=== PATIENT | female | born 1955 | race Caucasian/White ===

== ENCOUNTER 2018-01-25 11:17 | Observation (INO) | payer OTHER, SELFPAY ==
[2018-01-25] VITALS (10 sets, daily range): BP systolic 133–186; BP diastolic 67–93; PULSE 66–96; RESP 12–19; TEMP 36.2–36.9; O2SAT 95–99; BMI 28.5
--- NOTE | 2018-01-25 11:19 | ED.NEUROSD ---
HPI - Neuro Symptoms/Deficit General Chief Complaint: Neuro Symptoms/Deficit Stated Complaint: Altered mental status Time Seen by Provider: 01/25/18 11:19 Source: patient and family Mode of arrival: EMS Limitations: no limitations History of Present Illness HPI Narrative: 62-year-old female with a history of hypothyroidism presents after an episode at work where she suddenly became very dizzy/lightheaded, had to sit down, and loss consciousness afterwards. Her boyfriend who was present at work found her in the room with head shaking toward the right side, but no tremor of the upper or lower extremity. She was unresponsive during the episode and afterwards was confused and slow to respond. Medics called code stroke in route and she was evaluated for stroke on arrival here. NIH score was 1 initially as she could not remember her age but 15 min later was normal. Related Data Home Medications Medication Instructions Recorded Confirmed loratadine 10 mg PO DAILY PRN 01/25/18 01/25/18 lovastatin 10 mg PO QPM 01/25/18 01/25/18 omeprazole magnesium [Prilosec OTC] 20 mg PO QAM 01/25/18 01/25/18 ranitidine HCl 300 mg PO BID 01/25/18 01/25/18 thyroid (pork) [[place] Thyroid] 30 mg PO DAILY 01/25/18 01/25/18 trazodone 50 mg PO BEDTIME 01/25/18 01/25/18 Allergies Allergy/AdvReac Type Severity Reaction Status Date / Time metronidazole [METRONIDAZOLE] Allergy Severe FULL BODY Verified 01/25/18 11:54 HIVES Review of Systems Review of Systems All systems reviewed & are unremarkable except as noted in HPI and below Constitutional Denies chills, Denies fever(s), Denies headache(s), Denies lethargy and Denies weakness Eyes Denies change in vision, Denies eye discharge, Denies irritation and Denies loss of vision ENT Ears, Nose, Mouth, and Throat: Denies change in voice, Reports dizziness, Denies headache(s), Denies neck pain and Denies sore throat Cardiovascular Denies chest pain, Denies irregular heart rhythm, Denies lightheadedness, Denies palpitations, Denies dyspnea, Denies dyspnea on exertion and Denies orthopnea Respiratory Denies cough, Denies dyspnea, Denies dyspnea on exertion and Denies wheezing Gastrointestinal Gastrointestinal: Denies abdominal pain, Denies change in bowel habits, Denies diarrhea, Denies nausea and Denies vomiting Genitourinary Denies hematuria, Denies flank pain, Denies urinary incontinence and Denies urinary urgency Musculoskeletal Denies neck pain Integumentary/Breasts Denies pruritus, Denies erythema, Denies rash and Denies wounds Neurologic Denies confusion, Reports dizziness, Denies headache(s), Denies focal weakness, Denies loss of vision and Denies weakness Comments: Syncope Psychiatric Denies anxiety, Denies confusion, Denies depression, Denies homicidal ideation and Denies suicidal ideation Endocrine Denies palpitations Hematologic/Lymphatic Denies easy bruising Allergic/Immunologic Denies wheezing PFSH Medical History Cataract (Acute) Cyst (Acute) Depression (Acute) Hyperlipidemia (Acute) Hypothyroidism (Acute) Gastric reflux syndrome (Acute) Surgical History H/O section (Acute) Status post laser cataract surgery of both eyes (Acute) Social History household members: significant other Smoking Status: Never smoker alcohol intake: current Exam Initial Vital Signs Initial Vital Signs: Vital Signs Temperature 98.5 F 01/25/18 11:15 Pulse Rate 75 01/25/18 11:15 Respiratory Rate 18 01/25/18 11:15 Blood Pressure 186/90 H 01/25/18 11:15 Pulse Oximetry 98 01/25/18 11:15 Const General: cooperative and well developed Nutritional Appearance: well nourished Orientation: alert, awake, oriented x3 and not confused [facility] Head: normocephalic and atraumatic Ears: external ears normal and TM's normal bilaterally Nose: external nose normal and No nasal discharge Face and sinus: sinuses nontender, face symmetric, no sinus tenderness and No dry mucous membranes Mouth: oral mucosae normal and moist mucous membranes Teeth and gingiva: dentition normal Throat: tonsils normal and uvula midline Eyes General: appearance normal, both eyes and all related structures Eyelids: eyelids normal Conjunctivae: conjunctivae normal Sclera: sclerae normal Pupils: PERRL EOM: EOM intact bilaterally Neck Neck: normal visual inspection, trachea midline, No lymphadenopathy, No midline deformity and No JVD Lymphatic: No lymphedema Chest Chest: normal inspection of the chest Resp Effort & Inspection: normal respiratory effort, able to speak in complete sentences, no respiratory distress and no use of accessory muscles Auscultation: clear to auscultation bilaterally, no rales, no rhonchi and no wheezes Cardio Rate: regular rate Rhythm: regular rhythm Heart Sounds: no click, no gallops, no murmurs and no rubs Pulses: normal peripheral pulses GI Inspection: non-distended Palpation: soft, no hepatosplenomegaly, No guarding, No pulsatile mass and No tender Auscultation: normal bowel sounds Back/Spine/Pelvis Back: No CVA tenderness Cervical Spine: cervical ROM normal and No pain with cervical ROM Thoracic/Lumbar Spine: thoracic and lumbar spine normal to inspection Skin General: no rashes or lesions noted, No jaundice and No petechiae Neuro General: alert, oriented x3, gait normal and no focal motor deficits Speech: speech normal Extrem General: full ROM, no clubbing, cyanosis or edema, no pedal edema and no calf tenderness Psych Appearance: well kempt Mental Status: mental status grossly normal Attitude: cooperative Thought Content: normal and suicidality Judgment: judgment good Scores NIH Stroke Scale Level of Conciousness: Alert, keenly responsive Ask month/age: Answers one question correctly, intubated follow commands Open/close eyes, close hand: Performs both tasks correctly Best gaze horizontal: Normal Visual zheng: No visual loss Facial palsy: Normal symetrical movement Left arm drift: No drift for full 10 sec Right arm drift: No drift for full 10 sec Left leg drift: No drift for full 10 sec Right leg drift: No drift for full 10 sec Limb ataxia: Absent Sensory on face/arms/legs: Normal, no sensory loss Best language: No aphasia, normal Dysarthria: Normal Extinction or inattention: No abnormality Total NIH Stroke scale score: 1 Course Orders Ordered: ED Orders 01/25/18 11:20 CT head/brain wo con Stat EKG-12 Lead Stat 01/25/18 11:25 Complete Blood Count MAN DIFF Stat Comprehensive Metabolic Panel Stat Ethanol (ETOH) Stat Partial Thromboplastin Time Stat Prothrombin Time INR Stat Troponin I Stat 01/25/18 14:23 Prolactin Stat 01/25/18 14:24 MR stroke Stat 01/25/18 14:27 EC echo doppler complete Stat 01/25/18 14:30 Rapid Drug Screen, Urine Stat 01/25/18 17:55 Education, smoking cessation ONGOING 01/25/18 19:00 Prolactin Urgent 01/26/18 05:00 CBC [Complete Blood Count AUTO DIFF] Routine Comprehensive Metabolic Panel Routine Prolactin Routine Al Hydrox/Mg Hydrox/Simethicone (Maalox Plus) 30 ml PO Q6HR PRN PRN Reason: Dyspepsia Calcium Carbonate (Tums) 1,000 mg PO Q4HR PRN PRN Reason: Dyspepsia Loratadine (Claritin) 10 mg PO DAILY PRN PRN Reason: allergy symptom Lovastatin (Mevacor) 10 mg PO QPM [place] Pantoprazole Sodium (Protonix) 20 mg PO 0600 [place] Ranitidine HCl (Zantac) 300 mg PO BID [place] Thyroid ([place] Thyroid) 30 mg PO DAILY [place] Trazodone HCl (Desyrel) 50 mg PO BEDTIME [place] Discontinued Medications Aspirin (Aspirin Chew) 324 mg PO NOW ONE Stop: 01/25/18 14:27 Last Admin: 01/25/18 16:13 Dose: 324 mg Sodium Chloride (Normal Saline 0.9%) 1,000 mls @ 150 mls/hr IV CONT [place] Last Admin: 01/25/18 11:58 Dose: 150 mls/hr Consultations Consultation #1: Discussed with Dr. Gannon who notes this is difficult to say if it was a syncopal episode versus a seizure, but does recommend outpatient MRI, EEG, and neurology evaluation, as well as six-month driving restriction, and possibly Holter monitor to evaluate heart. Agrees that this is not consistent with a stroke. Time: 12:21 Consultation #2: discussed care with Dr. Walker who will admit pt. Recommends MRI/MRA, aspirin, follow up on urinalysis, echo, and prolactin with repeat in 4 hr Time: 14:28 Vital Signs - 8 hr 01/25/18 12:42 01/25/18 13:03 01/25/18 14:14 Temperature Pulse Rate 66 78 96 H Respiratory Rate 18 18 19 Blood Pressure Blood Pressure [Right Arm] 136/78 H 157/80 H 144/80 H Pulse Oximetry 97 99 99 01/25/18 17:48 01/25/18 17:55 Temperature 98.1 F 98.3 F Pulse Rate 67 83 Respiratory Rate 16 16 Blood Pressure 147/75 H 133/93 H Blood Pressure [Right Arm] Pulse Oximetry 96 96 MDM - Neuro Symptoms/Deficit Differential Diagnosis Likely transient cerebral ischemia and other (Seizure, syncope) Medical Records Attestation: I reviewed the patient's medical records. Lab Data Attestation: I reviewed the patient's lab results. Result diagrams: 01/25/18 11:25 01/25/18 11:25 Lab Results 01/25/18 01/25/18 01/25/18 Range/Units 11:25 11:25 11:25 WBC 6.6 (4.5-11.0) X10^3/uL RBC 4.47 (4.0-5.2) X10^6/uL Hgb 13.9 (12.0-16.0) g/dL Hct 40.3 (36-46) % MCV 90.2 (80-100) fL MCH 31.1 (26-34) PG MCHC 34.5 (30-36) % RDW 13.5 (11.6-14.8) % Plt Count 284 (150-400) X10^3/uL Total Counted 100 Seg Neutrophils % 65.0 (38-70) % Band Neutrophils % 1.0 L (3-7) % Lymphocytes % (Manual) 22.0 L (25-45) % Monocytes % (Manual) 5.0 (2-11) % Eosinophils % (Manual) 5.0 H (2-4) % Basophils % (Manual) 2.0 H (0-1) % Neutrophils # (Manual) 4356 (9241-2647) /uL RBC Morphology Normal morphology PT 12.3 (10.1-12.7) SECONDS INR 1.1 (0.9-1.3) APTT 31 (26.4-36.2) SECONDS Sodium 143 (137-145) mmol/L Potassium 4.2 (3.4-5.1) mmol/L Chloride 105 (98-107) mmol/L Carbon Dioxide 25 (22-32) mmol/L BUN 10 (7-17) mg/dL Creatinine 0.80 (0.52-1.04) mg/dL Estimated GFR > 60.0 (>60) mL/min BUN/Creatinine Ratio 12.5 (6-22) Glucose 96 (80-110) mg/dL Calcium 9.1 (8.4-10.2) mg/dL Total Bilirubin 0.6 (0.2-1.3) mg/dL AST 27 (14-36) IU/L ALT 66 H (9-52) IU/L Alkaline Phosphatase 93 (38-126) U/L Troponin I < 0.012 (0.01-0.034) ng/mL Total Protein 7.8 (6.3-8.2) g/dL Albumin 4.4 (3.5-5.0) g/dL Globulin 3.4 (1.7-4.1) g/dL Albumin/Globulin Ratio 1.3 (1.0-2.8) Prolactin (3.0-18.6) ng/mL Urine Opiates Screen (Negative) Ur Oxycodone Screen (Negative) Urine Methadone Screen (Negative) Ur Barbiturates Screen (Negative) U Tricyclic Antidepress (Negative) Ur Phencyclidine Scrn (Negative) Ur Amphetamines Screen (Negative) U Methamphetamines Scrn (Negative) Ur MDMA Scrn (Ecstasy) (Negative) U Benzodiazepines Scrn (Negative) Urine Cocaine Screen (Negative) U Marijuana (THC) Screen (Negative) Ethyl Alcohol < 10 mg/dL 01/25/18 01/25/18 Range/Units 14:23 14:30 WBC (4.5-11.0) X10^3/uL RBC (4.0-5.2) X10^6/uL Hgb (12.0-16.0) g/dL Hct (36-46) % MCV (80-100) fL MCH (26-34) PG MCHC (30-36) % RDW (11.6-14.8) % Plt Count (150-400) X10^3/uL Total Counted Seg Neutrophils % (38-70) % Band Neutrophils % (3-7) % Lymphocytes % (Manual) (25-45) % Monocytes % (Manual) (2-11) % Eosinophils % (Manual) (2-4) % Basophils % (Manual) (0-1) % Neutrophils # (Manual) (5316-1894) /uL RBC Morphology PT (10.1-12.7) SECONDS INR (0.9-1.3) APTT (26.4-36.2) SECONDS Sodium (137-145) mmol/L Potassium (3.4-5.1) mmol/L Chloride (98-107) mmol/L Carbon Dioxide (22-32) mmol/L BUN (7-17) mg/dL Creatinine (0.52-1.04) mg/dL Estimated GFR (>60) mL/min BUN/Creatinine Ratio (6-22) Glucose (80-110) mg/dL Calcium (8.4-10.2) mg/dL Total Bilirubin (0.2-1.3) mg/dL AST (14-36) IU/L ALT (9-52) IU/L Alkaline Phosphatase (38-126) U/L Troponin I (0.01-0.034) ng/mL Total Protein (6.3-8.2) g/dL Albumin (3.5-5.0) g/dL Globulin (1.7-4.1) g/dL Albumin/Globulin Ratio (1.0-2.8) Prolactin 26.0 H (3.0-18.6) ng/mL Urine Opiates Screen Negative (Negative) Ur Oxycodone Screen Negative (Negative) Urine Methadone Screen Negative (Negative) Ur Barbiturates Screen Negative (Negative) U Tricyclic Antidepress Negative (Negative) Ur Phencyclidine Scrn Negative (Negative) Ur Amphetamines Screen Negative (Negative) U Methamphetamines Scrn Negative (Negative) Ur MDMA Scrn (Ecstasy) Negative (Negative) U Benzodiazepines Scrn Negative (Negative) Urine Cocaine Screen Negative (Negative) U Marijuana (THC) Screen Negative (Negative) Ethyl Alcohol mg/dL Imaging Data CT scan - head: Radiologist's impression: PROCEDURE: CT HEAD/BRAIN WO CON INDICATIONS: cva. possible tpa sudden onset confusion nausea TECHNIQUE: Noncontrast 4.5 mm thick angled axial sections acquired from the foramen magnum to the vertex, with coronal and sagittal reformats. For radiation dose reduction, the following was used: automated exposure control, adjustment of mA and/or kV according to patient size. COMPARISON: None. FINDINGS: Image quality: Excellent. CSF spaces: Basal cisterns are patent. No extra-axial fluid collections. The ventricles are symmetric in size and shape. Brain: No intracranial bleeds or masses. There is cerebral volume loss for age, with resultant ventricular and sulcal prominence. There are periventricular and deep white matter chronic small vessel ischemic changes. There is intracranial internal carotid artery atherosclerosis. Skull and face: Calvarium and visualized facial bones appear intact, without suspicious lesions. Sinuses: Visualized sinuses and mastoids are clear. IMPRESSION: No acute intracranial abnormality. Dictated by: Camron Martel M.D. on 01/25/2018 at 11:29 Approved by: Camron Martel M.D. on 01/25/2018 at 11:30 MRI - head: Radiologist's impression: PROCEDURE: MR STROKE Pre- and post-contrast brain MRI, non-contrast brain MR angiogram, pre- and postcontrast neck MR angiogram INDICATIONS: transient aphasia TECHNIQUE: Brain: Noncontrast axial T1 spin echo, axial T2 fast spin echo, sagittal and axial FLAIR, coronal T2 fast spin echo, axial gradient echo, axial diffusion and ADC through the brain. After the administration of contrast, axial 3D VIBE of the cranial vasculature and brain. Brain MRA: Non-contrast 3-D time of flight MR angiogram, with multiple ojcbebb-xyvpiwzmc-toerbazgxc (MIP) reformats performed. Neck MRA: Axial and sagittal TruFISP through the neck. Coronal dynamic MR angiogram during administration of contrast in the arterial and venous phases, with 3-dimenstional nddnpxv-jvtcpdxls-glncnegeij (MIP) reformats constructed from subtraction images. COMPARISON: [facility], CT, CT HEAD/BRAIN WO CON, 01/25/2018, 11:14 FINDINGS: Image quality: Excellent. BRAIN: CSF spaces: Ventricles are normal in size and shape. Basal cisterns are patent. No extra-axial fluid collections. Brain: No intracranial bleeds or mass effects. [place]-white matter interface is normal. Diffusion weighted images show no acute ischemic insults. Brainstem appears normal. Normal intravascular flow voids are present. No abnormal intracranial enhancement. Skull and face: Calvarial marrow signal is normal. Orbits appear normal. Sinuses: Mucosal thickening noted in the right maxillary sinus. mastoids are clear. BRAIN MR ANGIOGRAM: Anterior circulation: Intracranial internal carotid arteries are normal in size and enhancement. The flow within the paired anterior cerebral arteries is normal and symmetric. The flow within the middle cerebral arteries is normal and symmetric. The anterior communicating artery is seen. No stenoses, occlusions, or aneurysms. Posterior circulation: The visualized portions of the vertebral arteries demonstrate normal caliber, and join to form a normal appearing basilar artery. The flow within the posterior cerebral arteries is normal and symmetric. No stenoses, occlusions, or aneurysms. NECK MR ANGIOGRAM: Carotids: Great vessels demonstrate a conventional anatomy as they arise from the aortic arch. The origins of the common carotid arteries appear patent. The calibers and courses of both common carotid arteries are normal. The bifurcation regions appear normal bilaterally. The internal carotid arteries demonstrate normal course and caliber. Posterior circulation: The origins of the vertebral arteries appear patent. More superior portions of both vertebral arteries demonstrate normal course and caliber, and join to form a normal appearing basilar artery. Miscellaneous: Subclavian arteries appear patent. Pre-contrast images through the neck show no soft tissue abnormalities. IMPRESSION: BRAIN MRI: 1. No acute intracranial disease process. 2. No areas of acute or chronic infarction. 3. No abnormal intracranial mass. 4. No abnormal intracranial postcontrast enhancement. BRAIN MR ANGIOGRAM: Negative examination. NECK MR ANGIOGRAM: Negative examination. Dictated by: Mira Norton MD, PhD on 01/25/2018 at 15:32 Approved by: Mira Norton MD, PhD on 01/25/2018 at 15:40 cardiac echo: Radiologist's impression: Interpretation Summary The left ventricle is normal in size, wall thickness, and systolic function without any focal wall motion abnormalities. The ejection fraction is estimated to be 60-65%. The right ventricle is normal in size and function. The right ventricular systolic pressure is estimated at 25 mmHg assuming a right atrial pressure of 3 mm Hg. The left atrium is borderline dilated. Right atrial size is normal. Injection of contrast documented no interatrial shunt. There is no significant valvular heart disease. The aortic root is normal size. ECG Data Attestation: I personally reviewed and interpreted this ECG as follows: Prior ECG tracings: available for review Interpretation: EKG performed at 11:27 a.m. shows sinus rhythm with a rate of 75. No ST elevation or depression is noted. Nonspecific T-wave abnormalities seen in lead 3, V3 through V5 MDM Narrative Medical decision making narrative: 62-year-old female with a rather unremarkable medical history presents after an episode at work that was witnessed where she had presyncopal symptoms, was witnessed to have convulsion like symptoms and a postictal phase, although it did also have components of potential stroke/TIA. She states she was awake and could hear people asking her questions but was unable to get the words out to respond. On arrival here her NIH score was 1 because she could not recall her age, but 15 min later her NIH score was 0. I consulted Neurology to try to better understand her symptoms and the path to go down. At that point they recommended outpatient seizure workup, but I was unaware of her history of aphasia, and thought that her decreased verbal responses after the neurologic episode or most likely explained by postictal state. At this point one could argue that her episode could be explained by a seizure, TIA, or syncope. Given her episode of less responsiveness following the event I would favor TIA or seizure with postictal phase. She will be admitted for further workup and treatment of her condition. Discharge Plan Departure Patient Disposition: Admitted As Inpatient Clinical Impression: TIA (transient ischemic attack), Seizure-like activity Discharge Date/Time: 01/25/18 15:00 Interventions: ED Discharge Assessment Last Done: 01/25/18 16:05 Admit Date/Time: 01/25/18 14:44 Admit Provider: Oma Walker
[2018-01-25 11:34] LABS: Hematocrit 40.3 % (36-46); Hemoglobin 13.9 g/dL (12.0-16.0); Mean Corpuscular HGB Conc 34.5 % (30-36); Mean Corpuscular Hemoglobin 31.1 PG (26-34); Mean Corpuscular Volume 90.2 fL (80-100); Platelet Count 284 X10^3/uL (150-400); Red Blood Cell Count 4.47 X10^6/uL (4.0-5.2); Red Cell Distribution Width 13.5 % (11.6-14.8); White Blood Cell Count 6.6 X10^3/uL (4.5-11.0)
[2018-01-25 11:40] LABS: INR 1.1 (0.9-1.3); Prothrombin Time 12.3 SECONDS (10.1-12.7)
[2018-01-25 11:43] LABS: PTT Partial Thromboplastin Tim 31 SECONDS (26.4-36.2)
[2018-01-25 11:48] LABS: Alanine Aminotransferase 66 IU/L (9-52); Albumin 4.4 g/dL (3.5-5.0); Albumin Globulin Ratio 1.3 (1.0-2.8); Alkaline Phosphatase 93 U/L (38-126); Aspartate Aminotransferase 27 IU/L (14-36); BUN Creatinine Ratio 12.5 (6-22); Bilirubin Total 0.6 mg/dL (0.2-1.3); Blood Urea Nitrogen 10 mg/dL (7-17); Calcium 9.1 mg/dL (8.4-10.2); Carbon Dioxide 25 mmol/L (22-32); Chloride 105 mmol/L (98-107); Estimated Glomerular Filt Rate > 60.0 mL/min (>60); Globulin 3.4 g/dL (1.7-4.1); Glucose 96 mg/dL (80-110); HEMOLYSIS < 15 (0-50); Potassium 4.2 mmol/L (3.4-5.1); Sodium 143 mmol/L (137-145); Total Protein 7.8 g/dL (6.3-8.2)
[2018-01-25] MEDS: SODIUM CHLORIDE 0.9% 1,000 ML 150 ML IV (11:58)
[2018-01-25 12:00] LABS: Troponin I < 0.012 ng/mL (0.01-0.034)
[2018-01-25 12:02] LABS: Ethanol (ETOH) < 10 mg/dL
[2018-01-25 12:13] LABS: Neutrophils Absolute Manual 4356 /uL (3000-5900); RBC Morphology Normal Morphology; Total Cells Counted 100
--- NOTE | 2018-01-25 14:24 | DI.MRI.S_ITS ---
PROCEDURE: MR STROKE Pre- and post-contrast brain MRI, non-contrast brain MR angiogram, pre- and postcontrast neck MR angiogram INDICATIONS: transient aphasia TECHNIQUE: Brain: Noncontrast axial T1 spin echo, axial T2 fast spin echo, sagittal and axial FLAIR, coronal T2 fast spin echo, axial gradient echo, axial diffusion and ADC through the brain. After the administration of contrast, axial 3D VIBE of the cranial vasculature and brain. Brain MRA: Non-contrast 3-D time of flight MR angiogram, with multiple ataccbu-lxodibpau-jenemonohj (MIP) reformats performed. Neck MRA: Axial and sagittal TruFISP through the neck. Coronal dynamic MR angiogram during administration of contrast in the arterial and venous phases, with 3-dimenstional hfcjcfi-diwatlmos-bqyiwmzpah (MIP) reformats constructed from subtraction images. COMPARISON: [facility], CT, CT HEAD/BRAIN WO CON, 01/25/2018, 11:14 FINDINGS: Image quality: Excellent. BRAIN: CSF spaces: Ventricles are normal in size and shape. Basal cisterns are patent. No extra-axial fluid collections. Brain: No intracranial bleeds or mass effects. Hammond-white matter interface is normal. Diffusion weighted images show no acute ischemic insults. Brainstem appears normal. Normal intravascular flow voids are present. No abnormal intracranial enhancement. Skull and face: Calvarial marrow signal is normal. Orbits appear normal. Sinuses: Mucosal thickening noted in the right maxillary sinus. mastoids are clear. BRAIN MR ANGIOGRAM: Anterior circulation: Intracranial internal carotid arteries are normal in size and enhancement. The flow within the paired anterior cerebral arteries is normal and symmetric. The flow within the middle cerebral arteries is normal and symmetric. The anterior communicating artery is seen. No stenoses, occlusions, or aneurysms. Posterior circulation: The visualized portions of the vertebral arteries demonstrate normal caliber, and join to form a normal appearing basilar artery. The flow within the posterior cerebral arteries is normal and symmetric. No stenoses, occlusions, or aneurysms. NECK MR ANGIOGRAM: Carotids: Great vessels demonstrate a conventional anatomy as they arise from the aortic arch. The origins of the common carotid arteries appear patent. The calibers and courses of both common carotid arteries are normal. The bifurcation regions appear normal bilaterally. The internal carotid arteries demonstrate normal course and caliber. Posterior circulation: The origins of the vertebral arteries appear patent. More superior portions of both vertebral arteries demonstrate normal course and caliber, and join to form a normal appearing basilar artery. Miscellaneous: Subclavian arteries appear patent. Pre-contrast images through the neck show no soft tissue abnormalities. IMPRESSION: BRAIN MRI: 1. No acute intracranial disease process. 2. No areas of acute or chronic infarction. 3. No abnormal intracranial mass. 4. No abnormal intracranial postcontrast enhancement. BRAIN MR ANGIOGRAM: Negative examination. NECK MR ANGIOGRAM: Negative examination. Dictated by: Mira Norton MD, PhD on 01/25/2018 at 15:32 Approved by: Mira Norton MD, PhD on 01/25/2018 at 15:40
--- NOTE | 2018-01-25 14:27 | DI.ECHO.S_ITS ---
[facility] +---------+ : : [address] : : : : [id number] : : : : Phone: [phone] Echocardiogram Report + + :Name: MIRIAN GARG Study Date: 01/25/2018 Height: 65 in : :[facility] Weight: 169 lb : : Gender: Female BSA: 1.8 m2 : :: 1955 Age: 62 yrs BP: 147/75 mmHg: :Reason For Study: Seizure : : Performed By: Rut Cruz : :Referring: JIMENEZ WORLEY R : + + Interpretation Summary The left ventricle is normal in size, wall thickness, and systolic function without any focal wall motion abnormalities. The ejection fraction is estimated to be 60-65%. The right ventricle is normal in size and function. The right ventricular systolic pressure is estimated at 25 mmHg assuming a right atrial pressure of 3 mm Hg. The left atrium is borderline dilated. Right atrial size is normal. Injection of contrast documented no interatrial shunt. There is no significant valvular heart disease. The aortic root is normal size. Procedure: A two-dimensional transthoracic echocardiogram with color flow and Doppler was performed. The study quality was technically adequate. There is no prior echocardiogram noted for this patient. The patient was in normal sinus rhythm during the exam. Left Ventricle: The left ventricle is normal in size, wall thickness, and systolic function without any focal wall motion abnormalities. The ejection fraction is estimated to be 60-65%. Right Ventricle: The right ventricle is normal in size and function. Atria: The left atrium is borderline dilated. Right atrial size is normal. Injection of contrast documented no interatrial shunt. Mitral Valve: The mitral valve is normal in structure and function. There is trace mitral regurgitation. Aortic Valve: The aortic valve is trileaflet. The aortic valve opens well. No aortic regurgitation is present. Tricuspid Valve: The tricuspid valve is normal in structure and function. There is trace tricuspid regurgitation. The right ventricular systolic pressure is estimated at 25 mmHg assuming a right atrial pressure of 3 mm Hg. Pulmonic Valve: The pulmonic valve is normal in structure and function. There is trace pulmonic regurgitation. There is no significant valvular heart disease. Great Vessels: The aortic root is normal size. The dimensions of the ascending aorta are normal. The IVC is of normal diameter and collapses greater than 50% with a sniff. This suggests a low right atrial pressure of 3 mm Hg. Pericardium/ Pleura There is no pericardial effusion. There is no pleural effusion. MMode/2D Measurements & Calculations LVIDd: 5.4 cm Ao root diam: 3.2 cm LVIDs: 3.2 cm Aortic Jxn: 2.8 cm FS: 41.0 % asc Aorta Diam: 3.3 cm EPSS: 0.74 cm Ao Arch Diam (Prox Trans): 3.1 cm IVSd: 0.74 cm LVPWd: 0.97 cm LV hutson. diameter/BSA (cm/m^2): 3.0 LV sys. diameter/BSA (cm/m^2): 1.7 LA dimension: 3.9 cm RA long axis: 4.3 cm LA A2 area: 15.5 cm2 RA area: 14.1 cm2 LA A4 area: 21.8 cm2 RA vol: 39.9 ml LA length (vol): 4.9 cm RA : 21.7 ml/m2 LA vol: 58.7 ml IVC diam: 1.1 cm LA vol index: 31.9 ml/m2 RVDd major: 6.8 cm RVD1 (basal): 4.1 cm RVD2 (mid): 4.0 cm Doppler Measurements & Calculations Ao V2 max: 128.3 cm/sec MV E max david: 77.7 cm/sec Ao V2 mean: 82.8 cm/sec MV A max david: 107.6 cm/sec Ao max P.6 mmHg MV E/A: 0.72 Ao mean P.3 mmHg Med Peak E' David: 5.1 cm/sec Ao V2 VTI: 29.8 cm E/E' med: 15.4 Lat Peak E' David: 5.7 cm/sec E/E' lat: 13.7 E/e' average: 14.5 MV dec time: 0.25 sec MV P1/2t: 75.7 msec TR max david: 233.4 cm/sec MV P1/2t max david: 78.1 cm/sec TR max P.8 mmHg MVA(P1/2t): 2.9 cm2 PA V2 max: 76.3 cm/sec PA V2 mean: 48.7 cm/sec PA mean P.1 mmHg PA Accel Time: 0.17 sec Reading Physician:RICK
[2018-01-25 15:46] LABS: Urine Amphetamines Negative (Negative); Urine Barbiturates Negative (Negative); Urine Benzodiazepines Negative (Negative); Urine Cocaine Negative (Negative); Urine MDMA Negative (Negative); Urine Methadone Negative (Negative); Urine Methamphetamines Negative (Negative); Urine Morphine/Opi cutoff 2000 Negative (Negative); Urine Oxycodone Negative (Negative); Urine Phencyclidine Negative (Negative); Urine Tetrahydrocannabinol Negative (Negative); Urine Tricyclic Antidepressant Negative (Negative)
[2018-01-25] MEDS: ASPIRIN 81 MG TAB 324 MG PO (16:13)
--- NOTE | 2018-01-25 16:15 | PC.NURSE ---
Pt admitted to room 204 around 1545. She is a&ox3, denies pain. Pupils Heather, O slurred speech noted. Pt is able to superintendent transportation well, and lift all of her extremities. No facial droop noticed. Pt is in getting her echo at this time. Significant other Armani in room.
--- NOTE | 2018-01-25 18:27 | PM.HP.1 ---
History of Present Illness Date Patient Seen: 01/25/18 Time Patient Seen: 18:27 Chief complaint: TIA(Transient Ischemic Attack) Narrative: 62-year-old female well known to me who has a history of hyperlipidemia, depression, hypothyroidism, GERD presents to the emergency department via ambulance with episode of possible syncope. The patient was in her usual state of health although she has had a lot of stress recently because she received a ladder last week from [facility] stating that her grandson was being taken away from her daughter. They previously lived with the patient however when the grandson was 3-month-old the mother became angry with the patient and moved away and she has not seen either of them since. This was quite stressful to her. She had eaten breakfast yet taken her thyroid medicine and taking her omeprazole and approximately 11:00 a.m. this morning she was standing talking to her co-worker when she all of a sudden felt sweaty felt her head was spinning and has had a previous episode 4 times of passing out and felt like she was going to pass out however this time she had a heightened sense of smell which she has never had before and then she laid down. The patient does not remember laid down but her co-worker saw her do this. 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 This happened for about 20 sec and then she was somewhat responsive to him saying that she was okay and then he noticed the left side of her face was slightly droopy and that lasted for few seconds and then within half a minute she seemed normal but continued to be confused. She was taken to the ER for evaluation and within 1.5 hr of being in the ER she was completely asymptomatic. She underwent an extensive workup with blood work, EKG, labs which were all normal. The emergency room physician discussed this with the neurologist at [facility] and they thought perhaps doing an EEG as an outpatient would be helpful. Given the prolonged confusion and as well when patient was laying on the ground she was trying to say her birthday and she knew it but she could not say it so there was suspicion for possible TIA and was felt patient needed to be admitted to the hospital for further monitoring and diagnosis. Since that time she has remained stable. Health related behavior: Is never been a smoker Drinks alcohol socially but not on a daily basis Is fairly active, biking, golfing, bowling Family history: Mom at 82 from a large stroke. Mom had TIAs. Mom also had thyroid problems was a smoker and alcoholic Father had congestive heart failure, renal failure, tobacco abuse and alcohol abuse brother with sarcoidosis Brother with diverticulitis Sister with thyroid problems Patient History Medical History Cataract (Acute) Cyst (Acute) Depression (Acute) Hyperlipidemia (Acute) Hypothyroidism (Acute) Gastric reflux syndrome (Acute) Surgical History H/O section (Acute) Status post laser cataract surgery of both eyes (Acute) Family & Social History Social History: household members significant other Prior Living Arrangements Apartment/Condo Safety & Behavioral: Feels Safe in Current Yes Environment Suicidal Ideation Description None Suicide Plan Description No Plan Tobacco & Substance use: Smoking Status Never smoker alcohol intake current alcohol intake frequency 0-2 drinks per day Substance Use Type does not use Meds Home Medications Medication Instructions Recorded Confirmed Type loratadine 10 mg PO DAILY PRN 01/25/18 01/25/18 History lovastatin 10 mg PO QPM 01/25/18 01/25/18 History omeprazole magnesium [Prilosec OTC] 20 mg PO QAM 01/25/18 01/25/18 History ranitidine HCl 300 mg PO BID 01/25/18 01/25/18 History thyroid (pork) [Elroy Thyroid] 30 mg PO DAILY 01/25/18 01/25/18 History trazodone 50 mg PO BEDTIME 01/25/18 01/25/18 History Allergies Allergy/AdvReac Type Severity Reaction Status Date / Time metronidazole [METRONIDAZOLE] Allergy Severe FULL BODY Verified 01/25/18 11:54 HIVES Review of Systems Review of Systems Patient was seen by a sales account executive yesterday and is scheduled for an EGD on February 08, 2018. Patient was changed from her twice a day omeprazole to once a day in November and placed on ranitidine 150 mg twice daily and she has had less upset stomach but her reflux has been worse. She is going to get a abdominal ultrasound to rule out gallbladder disease. She denies any abdominal pain no change in stools no urine sx increase in stress no cp, sob, palpitations etc... All systems reviewed & are unremarkable except as noted in HPI and below Exam Vital Signs (past 8 hours): Vital Signs - 8 hr 01/25/18 11:15 01/25/18 11:30 01/25/18 11:48 Temperature 98.5 F Pulse Rate 75 76 70 Respiratory Rate 18 15 16 Blood Pressure 186/90 H Blood Pressure [Right Arm] 174/67 H 159/74 H Pulse Oximetry 98 99 98 01/25/18 12:02 01/25/18 12:42 01/25/18 13:03 Temperature Pulse Rate 82 66 78 Respiratory Rate 12 18 18 Blood Pressure Blood Pressure [Right Arm] 149/78 H 136/78 H 157/80 H Pulse Oximetry 97 97 99 01/25/18 14:14 01/25/18 17:48 Temperature 98.1 F Pulse Rate 96 H 67 Respiratory Rate 19 16 Blood Pressure 147/75 H Blood Pressure [Right Arm] 144/80 H Pulse Oximetry 99 96 Pulse Oximetry 96 Oxygen Delivery Method Room Air Narrative Exam Narrative: Patient is alert and oriented no apparent distress with stable vital signs. She is lying in the hospital bed laughing with her friends were surrounding her. She is alert and oriented x3 is excellent historian and all her friends and significant other near her states that she is functioning at her usual level. HEENT: Unremarkable Neck: Supple without adenopathy Chest: Clear to auscultation without wheezes rhonchi or crackles Cor: Regular rate and rhythm Without any murmur Abdomen: Positive bowel sounds, soft, nontender, nondistended, no hepatosplenomegaly Extremities: No edema pulses intact Skin: No rashes Neurologic exam cranial nerves 2-12 are grossly intact, bilateral upper and lower extremities neurovascularly intact. Neurologic exam is nonfocal Objective Labs Result Diagrams: 01/25/18 11:25 01/25/18 11:25 Labs: Laboratory Results - last 24 hr 01/25/18 01/25/18 01/25/18 11:25 11:25 11:25 WBC 6.6 RBC 4.47 Hgb 13.9 Hct 40.3 MCV 90.2 MCH 31.1 MCHC 34.5 RDW 13.5 Plt Count 284 Total Counted 100 Seg Neutrophils % 65.0 Band Neutrophils % 1.0 L Lymphocytes % (Manual) 22.0 L Monocytes % (Manual) 5.0 Eosinophils % (Manual) 5.0 H Basophils % (Manual) 2.0 H Neutrophils # (Manual) 4356 RBC Morphology Normal morphology PT 12.3 INR 1.1 APTT 31 Sodium 143 Potassium 4.2 Chloride 105 Carbon Dioxide 25 BUN 10 Creatinine 0.80 Estimated GFR > 60.0 BUN/Creatinine Ratio 12.5 Glucose 96 Calcium 9.1 Total Bilirubin 0.6 AST 27 ALT 66 H Alkaline Phosphatase 93 Troponin I < 0.012 Total Protein 7.8 Albumin 4.4 Globulin 3.4 Albumin/Globulin Ratio 1.3 Prolactin Urine Opiates Screen Ur Oxycodone Screen Urine Methadone Screen Ur Barbiturates Screen U Tricyclic Antidepress Ur Phencyclidine Scrn Ur Amphetamines Screen U Methamphetamines Scrn Ur MDMA Scrn (Ecstasy) U Benzodiazepines Scrn Urine Cocaine Screen U Marijuana (THC) Screen Ethyl Alcohol < 10 01/25/18 01/25/18 14:23 14:30 WBC RBC Hgb Hct MCV MCH MCHC RDW Plt Count Total Counted Seg Neutrophils % Band Neutrophils % Lymphocytes % (Manual) Monocytes % (Manual) Eosinophils % (Manual) Basophils % (Manual) Neutrophils # (Manual) RBC Morphology PT INR APTT Sodium Potassium Chloride Carbon Dioxide BUN Creatinine Estimated GFR BUN/Creatinine Ratio Glucose Calcium Total Bilirubin AST ALT Alkaline Phosphatase Troponin I Total Protein Albumin Globulin Albumin/Globulin Ratio Prolactin 26.0 H Urine Opiates Screen Negative Ur Oxycodone Screen Negative Urine Methadone Screen Negative Ur Barbiturates Screen Negative U Tricyclic Antidepress Negative Ur Phencyclidine Scrn Negative Ur Amphetamines Screen Negative U Methamphetamines Scrn Negative Ur MDMA Scrn (Ecstasy) Negative U Benzodiazepines Scrn Negative Urine Cocaine Screen Negative U Marijuana (THC) Screen Negative Ethyl Alcohol Assessment & Plan Plan: Assessment/Plan Narrative: 62-year-old female with probable syncopal episode but cannot rule out TIA or possible seizure Plan will admit to the hospital for further workup and observation. Patient was given aspirin in the ER. Case was discussed with neurologist at [facility]. Will do echo and MRI and MRA. Will do a prolactin a repeat prolactin in 4 hr. Will do neuro checks overnight. She can have a regular diet. Will place her on telemetry to rule out a rib media. Will monitor vital signs. Assessment 2. Elevated liver function tests of unclear etiology very minimal Plan: Will reassess in the a.m. Assessment 3. History of depression with increased stress but overall coping well Plan: Continue trazodone Assessment 4. GERD no acute issues Plan: Continue on omeprazole and ranitidine as an outpatient Code status is full code Time Spent With Patient Time with patient: Greater than 35 minutes Quality VTE Deep Vein Thrombosis/Pulmonary Embolism Present on Admission: No
[2018-01-25] MEDS: TRAZODONE 50 MG TABLET PO (21:54)
[2018-01-26 01:00] VITALS: O2SAT 95
[2018-01-26 01:07] VITALS: BP 117/76; PULSE 70; RESP 20; TEMP 37.2; O2SAT 95
[2018-01-26 05:20] VITALS: BP 126/76; PULSE 72; RESP 20; TEMP 36.8; O2SAT 98
[2018-01-26] MEDS: PANTOPRAZOLE 20 MG TABLET PO (05:21)
[2018-01-26 06:30] LABS: Add Manual Diff / Slide Review NO; Basophils Percent Auto 1.1 % (0-2); Hematocrit 39.6 % (36-46); Hemoglobin 13.4 g/dL (12.0-16.0); Mean Corpuscular HGB Conc 33.8 % (30-36); Mean Corpuscular Hemoglobin 30.4 PG (26-34); Mean Corpuscular Volume 89.8 fL (80-100); Neutrophils Absolute Auto 3600 /uL (3000-5900); Neutrophils Percent Auto 60.9 % (50-75); Platelet Count 262 X10^3/uL (150-400); Red Cell Distribution Width 13.8 % (11.6-14.8)
[2018-01-26 06:41] LABS: Alanine Aminotransferase 64 IU/L (9-52); Albumin 3.9 g/dL (3.5-5.0); Albumin Globulin Ratio 1.3 (1.0-2.8); Alkaline Phosphatase 76 U/L (38-126); Aspartate Aminotransferase 29 IU/L (14-36); BUN Creatinine Ratio 13.3 (6-22); Bilirubin Total 0.7 mg/dL (0.2-1.3); Blood Urea Nitrogen 12 mg/dL (7-17); Carbon Dioxide 26 mmol/L (22-32); Chloride 107 mmol/L (98-107); Estimated Glomerular Filt Rate > 60.0 mL/min (>60); Globulin 3.1 g/dL (1.7-4.1); Glucose 91 mg/dL (80-110); HEMOLYSIS < 15 (0-50); Potassium 3.7 mmol/L (3.4-5.1); Sodium 143 mmol/L (137-145)
[2018-01-26 07:00] VITALS: O2SAT 94
[2018-01-26 07:01] LABS: Prolactin 15.3 ng/mL (3.0-18.6)
[2018-01-26 07:50] VITALS: BP 131/78; PULSE 90; RESP 16; TEMP 36.8; O2SAT 96
[2018-01-26] MEDS: THYROID, PORK 30 MG TABLET PO (09:01)
--- NOTE | 2018-01-26 10:25 | CM.DANOTE ---
DCP: assessment: Case received, d/c to home order noted. Met with pt and her sister (bedside). Introduced self and role. DCP template completed with info available at this time. Pt is a 62 year old female who admitted yesterday to care of PCP: Dr. Walker. Payer: [facility] Pt says she is pleased to be ok'd for d/c today and Victor Manuel will be here before noon. She has a followup appt with Dr. Walker.
--- NOTE | 2018-01-26 12:02 | PC.NURSE ---
Pt discharged to home. Iv's x2 taken out and cath tip intact. Down to car with astronaut mission specialist and s.o. to drive pt home.
--- NOTE | 2018-01-26 17:18 | PM.DS.1 ---
History of Present Illness Chief complaint: TIA(Transient Ischemic Attack) Narrative: 62-year-old female well known to me who has a history of hyperlipidemia, depression, hypothyroidism, GERD presents to the emergency department via ambulance with episode of possible syncope. The patient was in her usual state of health although she has had a lot of stress recently because she received a ladder last week from [facility] stating that her grandson was being taken away from her daughter. They previously lived with the patient however when the grandson was 3-month-old the mother became angry with the patient and moved away and she has not seen either of them since. This was quite stressful to her. She had eaten breakfast yet taken her thyroid medicine and taking her omeprazole and approximately 11:00 a.m. this morning she was standing talking to her co-worker when she all of a sudden felt sweaty felt her head was spinning and has had a previous episode 4 times of passing out and felt like she was going to pass out however this time she had a heightened sense of smell which she has never had before and then she laid down. The patient does not remember laid down but her co-worker saw her do this. 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 This happened for about 20 sec and then she was somewhat responsive to him saying that she was okay and then he noticed the left side of her face was slightly droopy and that lasted for few seconds and then within half a minute she seemed normal but continued to be confused. She was taken to the ER for evaluation and within 1.5 hr of being in the ER she was completely asymptomatic. She underwent an extensive workup with blood work, EKG, labs which were all normal. The emergency room physician discussed this with the neurologist at [facility] and they thought perhaps doing an EEG as an outpatient would be helpful. Given the prolonged confusion and as well when patient was laying on the ground she was trying to say her birthday and she knew it but she could not say it so there was suspicion for possible TIA and was felt patient needed to be admitted to the hospital for further monitoring and diagnosis. Since that time she has remained stable. Health related behavior: Is never been a smoker Drinks alcohol socially but not on a daily basis Is fairly active, biking, golfing, bowling Family history: Mom at 82 from a large stroke. Mom had TIAs. Mom also had thyroid problems was a smoker and alcoholic Father had congestive heart failure, renal failure, tobacco abuse and alcohol abuse brother with sarcoidosis Brother with diverticulitis Sister with thyroid problems Discharge Providers Date of admission: 01/25/18 14:44 Primary care physician: Oma Walker MD Discharge provider: Oma Walker MD Summary Discharge Diagnosis: Probable syncopal episode. No clear evidence of seizure or TIA with completely negative workup Hospital Course: Patient was admitted to the hospital for possible TIA. She had no further symptoms and upon further discussion she has had previous syncopal episodes that were similar in nature however it she was somewhat confused for longer. After this occurred. She has had previous syncopal episodes that have occurred with severe stress. She is currently under severe stress due to family issues and concerns about her grandson as well as her work. She was admitted to the hospital underwent an MRI/MRA stroke protocol which was negative. She had echo that was normal. Her prolactin was minimally elevated and then return to normal the next day. A repeat 4 hr after initial was the same as initial. It is more compatible with aging or episode as well. She was watched overnight on telemetry and was normal sinus rhythm. She was given aspirin in the ER. She was completely back to her baseline approximately 1.5 hr after the event. This week. We will refer her to Neurology. Status at Discharge Cognitive/behavioral status at discharge: Baseline Functional status at discharge: independent ambulation Time Spent with Patient Greater than 30 minutes Exam Vital Signs (past 8 hours): Pulse Oximetry 96 Oxygen Delivery Method Room Air Narrative Exam Narrative: Patient is alert and oriented no apparent distress. She had unremarkable night and is a stroke scale 0. She is alert and oriented x3 Afebrile vital under stable HEENT: Unremarkable Neck: Supple without masses Chest: Clear to auscultation bilaterally Cor: Regular rate and rhythm without murmur rubs or gallops Abdomen: Positive bowel sounds, soft, nontender, nondistended, no hepatosplenomegaly Extremities: No edema pulses intact Neurologic exam nonfocal. Cranial nerves 2-12 are grossly intact. Strength is intact and symmetric bilateral upper and lower extremities. Romberg and elation negative Objective Labs Result Diagrams: 01/26/18 06:10 01/26/18 06:10 Labs: Laboratory Results - last 24 hr 01/26/18 01/26/18 01/26/18 06:10 06:10 06:10 WBC 6.0 RBC 4.40 Hgb 13.4 Hct 39.6 MCV 89.8 MCH 30.4 MCHC 33.8 RDW 13.8 Plt Count 262 Neut % (Auto) 60.9 Lymph % (Auto) 21.0 L [place] % (Auto) 11.0 Eos % (Auto) 6.0 H Baso % (Auto) 1.1 Neut # (Auto) 3600 Sodium 143 Potassium 3.7 Chloride 107 Carbon Dioxide 26 BUN 12 Creatinine 0.90 Estimated GFR > 60.0 BUN/Creatinine Ratio 13.3 Glucose 91 Calcium 9.0 Total Bilirubin 0.7 AST 29 ALT 64 H Alkaline Phosphatase 76 Total Protein 7.0 Albumin 3.9 Globulin 3.1 Albumin/Globulin Ratio 1.3 Prolactin 15.3 Discharge Plan Discharge Plan Patient Disposition: Home, Self-Care Provider Discharge Instructions Diet: Diet as Tolerated Activity: no work and Wednesday and can go back to work Wednesday no strenuous activity Discharge Data Primary Care Provider: Oma Walker Attending Provider: Oma Walker Admit Date/Time: 01/25/18 14:44 Discharges patient from system. Discharge Date/Time: 01/26/18 11:40 Quality VTE Deep Vein Thrombosis/Pulmonary Embolism Present on Admission: No
== END 2018-01-26 11:40 | disposition home or self-care (01) ==
LOC: ED 14:29 → AC 16:10
PROVIDERS: Admitting Provider Family Medicine; Emergency Provider Emergency Medicine; Family Provider Family Medicine; PCP Family Medicine; Visit Provider Family Medicine
DX: R55 Syncope and collapse (principal); E03.9 Hypothyroidism, unspecified; E78.5 Hyperlipidemia, unspecified; K21.9 Gastro-esophageal reflux disease without esophagitis; F32.9 Major depressive disorder, single episode, unspecified; R41.82 Altered mental status, unspecified
CPT/HCPCS: 36415; 70450; 70553; 80053; 80305; 80320; 81003; 82962; 84146; 84484; 85025; 85610; 85730; 93005; 93306; 99283; 99285; G0378

== ENCOUNTER → 2018-02-03 08:09 | Outpatient (CLI) | payer OTHER, SELFPAY ==
[2018-01-25 15:38] VITALS: BMI 28.5
--- NOTE | 2018-02-03 | DI.US.S_ITS ---
PROCEDURE: US ABDOMEN COMPLETE INDICATIONS: GERD TECHNIQUE: Real-time scanning was performed of the abdominal and retroperitoneal organs, with image documentation. COMPARISON: [facility], US, ABDOMEN COMPLETE, 11/22/2008, 7:56. FINDINGS: Liver: Liver is normal in size and homogeneous in echotexture. Gallbladder: Gallbladder is clear with normal wall thickness. Biliary ducts: Intrahepatic bile ducts are non-dilated. Extrahepatic bile duct caliber measures 3.6 mm. Normal is 6-7 mm or less in diameter, or 10 mm or less post-cholecystectomy. Pancreas: Visualized portions of the pancreas are sonographically normal. Spleen: Spleen is normal in size and homogeneous in echotexture. Kidneys: Kidneys are normal in size and echotexture. Right kidney measures 10.2 cm long; left kidney measures 10.6 cm long. No hydronephrosis or nephrolithiasis. No solid masses. An 8mm nonobstructing stone is noted in the mid collecting system of the right kidney. Aorta: Visualized aorta is normal in caliber at less than 3 cm. Iliacs: Proximal common iliac arteries are normal in caliber at less than 2.5 cm. IVC: Intrahepatic inferior vena cava is patent. Miscellaneous: No free abdominal fluid. IMPRESSION: 1. Right nephrolithiasis again noted. 2. No acute intra-abdominal abnormality identified. Dictated by: Sulaiman Deleon M.D. on 02/03/2018 at 8:41 Approved by: Sulaiman Deleon M.D. on 02/03/2018 at 8:43
== END ==
PROVIDERS: PCP Family Medicine; Visit Provider Internal Medicine Gastroenterology
DX: N20.0 Calculus of kidney (principal); K21.9 Gastro-esophageal reflux disease without esophagitis
CPT/HCPCS: 76700

== ENCOUNTER 2018-02-09 07:23 | Day surgery (SDC) | payer OTHER, SELFPAY ==
[2018-01-25 15:38] VITALS: BMI 28.5
--- NOTE | 2018-02-09 | PATH_ITS ---
[facility] Accession Number: [id number] . 01 Material submitted: . PART A: GASTRIC PART B: GASTRIC POLYP . 02 Diagnosis: A. Stomach, Biopsies: Gastric antral mucosa with no diagnostic abnormality. No evidence of Helicobacter organisms on H/E stain. Negative for intestinal metaplasia, dysplasia or malignancy. . B. Gastric Polyp, Biopsy: Fundic gland polyp. No evidence of Helicobacter organisms on H/E stain. Negative for intestinal metaplasia, dysplasia or malignancy. V/02/10/2018 . 02 Electronically signed: . Pankaj Knight MD, PhD, Pathologist NPI- [id number] . 01 Gross description: . Received are two formalin-filled containers, both labeled with the patient's name: . A. In a container labeled gastric, the specimen consists of a 0.3 cm portion of tissue, entirely submitted in cassette A. B. In a container labeled gastric polyp, the specimen consists of two 0.1-0.2 cm portions of tissue, entirely submitted in cassette B. ([id number]) /FRR . 02 Pathologist provided ICD-10: K31.7, R10.13 . 02 CPT . 195711, 348661 Performed at: 01 [facility] [address] [facility], [place], [place] [id number] MD Sharif Ca MD Phone: [phone] Performed at: 02 [facility] [address] [place], [place] [id number] MD Dawson Higgins MD Phone: [phone]
[2018-02-09 07:57] VITALS: BP 129/93; PULSE 96; RESP 16; TEMP 36.7; O2SAT 95
[2018-02-09] MEDS: SODIUM CHLORIDE 0.9% 1,000 ML 200 ML IV (08:10)
--- NOTE | 2018-02-09 08:31 | PM.HP.1 ---
History of Present Illness Chief complaint: [id number] EGD Patient History Medical History Cataract (Acute) Cyst (Acute) Depression (Acute) Gastric reflux syndrome (Acute) Hyperlipidemia (Acute) Hypothyroidism (Acute) Surgical History H/O section (Acute) Status post laser cataract surgery of both eyes (Acute) Family & Social History Social History: household members significant other Tobacco & Substance use: Smoking Status Never smoker alcohol intake current alcohol intake frequency 0-2 drinks per day Substance Use Type does not use Meds Home Medications Medication Instructions Recorded Confirmed Type lovastatin 10 mg PO QPM 01/25/18 02/09/18 History omeprazole magnesium [Prilosec OTC] 20 mg PO QAM 01/25/18 02/09/18 History ranitidine HCl 300 mg PO BID 01/25/18 02/09/18 History thyroid (pork) [[place] Thyroid] 30 mg PO DAILY 01/25/18 02/09/18 History trazodone 50 mg PO BEDTIME 01/25/18 02/09/18 History Calcium 500 1 tab PO DAILY 02/09/18 02/09/18 History Multi Vitamin 1 tab PO DAILY 02/09/18 02/09/18 History cholecalciferol (vitamin D3) 5,000 mg PO DAILY 02/09/18 02/09/18 History Allergies Allergy/AdvReac Type Severity Reaction Status Date / Time metronidazole [METRONIDAZOLE] Allergy Severe FULL BODY Verified 01/25/18 11:54 HIVES Exam Vital Signs (past 8 hours): - 02/09/18 07:57 Temperature 98.1 F Pulse Rate 96 H Respiratory Rate 16 Blood Pressure 129/93 H Pulse Oximetry 95 Oxygen Delivery Method Room Air Narrative Exam Narrative: HEENT normocephalic. Pupils round and reactive to light. Neck supple without adenopathy or thyromegaly Chest clear to auscultation and percussion Cardiac exam reveals no S3 or murmur Abdomen soft, nontender, and bowel sounds, no clear hepatosplenomegaly Extremities without cyanosis clubbing or edema Assessment & Plan Plan: Assessment/Plan Narrative: GERD Plan for upper endoscopy. Currently maintained on omeprazole 20 mg q.a.m. and ranitidine 150 b.i.d..
--- NOTE | 2018-02-09 08:33 | PM.OP.ENDO ---
Operative Date/Time/Diagnoses - Date of procedure: 02/09/18 Time of procedure: 08:34 Pre-op diagnosis: Pre-procedure diagnosis: GERD Post-op diagnosis: same Procedure & Clinicians Study performed: EGD Indications: GERD Procedure Notes Procedure in detail: After informed consent was obtained the patient was placed in left lateral decubitus position. The video upper scope was placed in the oropharynx and with the patient's health swallowed into the esophagus. The esophagus stomach and duodenum were carefully examined. On withdrawal retroflexed view the GE junction was performed. The scope was removed the patient tolerated the procedure well. Findings 1. Normal esophagus with normal squamocolumnar junction 2. Gastric body with multiple polyps many of which are quite large and at least 2 which are pedunculated. Biopsies taken to rule out adenoma. Most likely fundic gland polyps. 3. Striped antral erythema biopsies taken to rule out Helicobacter 4. Somewhat erythematous pylorus though without thaddeus ulceration 5. Normal duodenal bulb and sweep Complications: none Plan for aftercare: Change your medication dosing to 20 mg of omeprazole in the morning and 150 mg ranitidine at bedtime. If having residual symptoms occur in the evening or in the morning add ranitidine 150 mg at bedtime for total of [address] Nolen in 1 month to let him know how you are doing. Follow up: as needed
--- NOTE | 2018-02-09 08:34 | P.HP_ITS ---
History of Present Illness Chief complaint: [id number] EGD Patient History Medical History Cataract (Acute) Cyst (Acute) Depression (Acute) Gastric reflux syndrome (Acute) Hyperlipidemia (Acute) Hypothyroidism (Acute) Surgical History H/O section (Acute) Status post laser cataract surgery of both eyes (Acute) Family & Social History Social History: household members significant other Tobacco & Substance use: Smoking Status Never smoker alcohol intake current alcohol intake frequency 0-2 drinks per day Substance Use Type does not use Meds Home Medications Medication Instructions Recorded Confirmed Type lovastatin 10 mg PO QPM 01/25/18 02/09/18 History omeprazole magnesium [Prilosec OTC] 20 mg PO QAM 01/25/18 02/09/18 History ranitidine HCl 300 mg PO BID 01/25/18 02/09/18 History thyroid (pork) [[place] Thyroid] 30 mg PO DAILY 01/25/18 02/09/18 History trazodone 50 mg PO BEDTIME 01/25/18 02/09/18 History Calcium 500 1 tab PO DAILY 02/09/18 02/09/18 History Multi Vitamin 1 tab PO DAILY 02/09/18 02/09/18 History cholecalciferol (vitamin D3) 5,000 mg PO DAILY 02/09/18 02/09/18 History Allergies Allergy/AdvReac Type Severity Reaction Status Date / Time metronidazole [METRONIDAZOLE] Allergy Severe FULL BODY Verified 01/25/18 11:54 HIVES Exam Vital Signs (past 8 hours): - 02/09/18 07:57 Temperature 98.1 F Pulse Rate 96 H Respiratory Rate 16 Blood Pressure 129/93 H Pulse Oximetry 95 Oxygen Delivery Method Room Air Narrative Exam Narrative: HEENT normocephalic. Pupils round and reactive to light. Neck supple without adenopathy or thyromegaly Chest clear to auscultation and percussion Cardiac exam reveals no S3 or murmur Abdomen soft, nontender, and bowel sounds, no clear hepatosplenomegaly Extremities without cyanosis clubbing or edema Assessment & Plan Plan: Assessment/Plan Narrative: GERD Plan for upper endoscopy. Currently maintained on omeprazole 20 mg q.a.m. and ranitidine 150 b.i.d..
[2018-02-09] MEDS: fentaNYL 250 MCG/5 ML INJ IV (08:47)
[2018-02-09] MEDS: MIDAZOLAM 5 MG/5 ML VIAL IV (08:47)
[2018-02-09 08:51] VITALS: BP 123/81; PULSE 73; RESP 11; TEMP 36.6; O2SAT 97
[2018-02-09 08:55] VITALS: BP 113/81; PULSE 68; RESP 12; O2SAT 96
--- NOTE | 2018-02-09 08:57 | SUR.PHASEI ---
more awake taking ice chips well, advanced to fluids.
[2018-02-09 08:59] VITALS: BP 131/83; PULSE 92; RESP 18; TEMP 36.6; O2SAT 96
[2018-02-09 09:09] VITALS: BP 119/81; PULSE 72; RESP 16; TEMP 36.4; O2SAT 95
--- NOTE | 2018-02-09 09:36 | SUR.PHASEII ---
dr martinez to bedside- explained medication change friend and pt voiced an understanding.
== END 2018-02-09 09:25 | disposition home or self-care (01) ==
PROVIDERS: PCP Family Medicine; Visit Provider Internal Medicine Gastroenterology
PROC: 0DJ08ZZ Inspection of Upper Intestinal Tract, Via Natural or Artificial Opening Endoscopic (ICD-10-PCS; CPT 43235; principal; 2018-02-09 08:30)
DX: K31.7 Polyp of stomach and duodenum (principal); K21.9 Gastro-esophageal reflux disease without esophagitis; E78.5 Hyperlipidemia, unspecified; E03.9 Hypothyroidism, unspecified
CPT/HCPCS: 43239; J2250; J3010

== ENCOUNTER 2019-07-10 16:58 | Observation (INO) | payer OTHER, SELFPAY ==
[2018-01-25 15:38] VITALS: BMI 28.5
[2019-07-10] VITALS (12 sets, daily range): BP systolic 106–158; BP diastolic 51–84; PULSE 73–101; RESP 13–20; TEMP 36.4–37.3; O2SAT 92–100; BMI 60.5
--- NOTE | 2019-07-10 | PATH_ITS ---
[facility] Accession Number: [id number] . 01 Material submitted: . appendix - APPENDIX . 01 Clinical history: . R/O APPY . 02 Diagnosis: Appendix, Appendectomy: Acute suppurative appendicitis with serositis. No evidence of neoplasm. [facility] 07/14/2019 1526 Local . 02 Electronically signed: . Pankaj Knight MD, PhD, Pathologist NPI- [id number] . 01 Gross description: . Received in formalin, labeled appendix, is an intact appendix (length-5.8 cm, diameter-0.7 cm) with rebolledo-pink focally eroded and exudate covered serosa with attached mesoappendix (up to 1.8 cm in depth). The resection margin is received stapled. The lumen contains rebolledo-brown solid paste-like material. The wall is up to 0.3 cm thick. No nodules, masses or lesions are identified. The resection margin is inked blue. Section code: (A1) resection margin en face and three additional contracts representative serial sections; (A2) one-half of the bivalved tip. ([id number]) /[facility] 07/12/2019 1645 Local . 02 Pathologist provided ICD-10: K35.80 . 02 CPT . 876833 Performed at: 01 [facility] [address], [place], [place] [id number] MD Sharif Ca MD Phone: [phone] Performed at: 02 [facility] [address] [place], [place] [id number] MD Kylee Hoang MD Phone: [phone]
[2019-07-10] MEDS: MORPHINE 2 MG/ML INJ IV (17:53)
--- NOTE | 2019-07-10 18:32 | PM.HP.1 ---
History of Present Illness History of Present Illness Date Patient Seen: 07/10/19 Time Patient Seen: 18:37 Chief complaint: R/O APPY Narrative: This is a 64-year-old woman with acute uncomplicated appendicitis transferred from an outside hospital. Umbilical pain began at 5:00 a.m. today migrated to the right lower quadrant. Associated with nausea no vomiting no diarrhea no fever. At the outside hospital labs significant for white count 13, hematocrit 41, creatinine 0.9 normal lipase, negative urinalysis. CT demonstrates 11 mm appendix with stranding no free fluid no air no abscess. No history of coronary artery disease, valvular disease, arrhythmia, peripheral vascular disease, diabetes, pulmonary or renal insufficiency. They are a nonsmoker and not on anticoagulation. There is a remote history of TIA. Patient History Medical History Cataract (Acute) Cyst (Acute) Depression (Acute) Gastric reflux syndrome (Acute) Hyperlipidemia (Acute) Hypothyroidism (Acute) Surgical History H/O section (Acute) Status post laser cataract surgery of both eyes (Acute) Family & Social History Social History: household members significant other Prior Living Arrangements Apartment/Condo Safety & Behavioral: Feels Safe in Current Yes Environment Been Physically Hurt or No Threatened By a Person Suicidal Ideation Description None Suicide Plan Description No Plan Tobacco & Substance use: Smoking Status Never smoker alcohol intake current alcohol intake frequency 0-2 drinks per day Substance Use Type does not use Meds Home Medications and Allergies Home Medications Medication Instructions Recorded Confirmed Type lovastatin 10 mg PO QPM 01/25/18 02/09/18 History omeprazole magnesium [Prilosec OTC] 20 mg PO QAM 01/25/18 02/09/18 History ranitidine HCl 300 mg PO BID 01/25/18 02/09/18 History thyroid (pork) [[place] Thyroid] 30 mg PO DAILY 01/25/18 02/09/18 History trazodone 50 mg PO BEDTIME 01/25/18 02/09/18 History Calcium 500 1 tab PO DAILY 02/09/18 02/09/18 History Multi Vitamin 1 tab PO DAILY 02/09/18 02/09/18 History cholecalciferol (vitamin D3) 5,000 mg PO DAILY 02/09/18 02/09/18 History Allergies Allergy/AdvReac Type Severity Reaction Status Date / Time metronidazole [METRONIDAZOLE] Allergy Severe FULL BODY Verified 01/25/18 11:54 HIVES Review of Systems Review of Systems ROS Unobtainable: All systems reviewed & are unremarkable except as noted in HPI and below Exam Vital Signs (past 8 hours): - 07/10/19 17:47 Temperature 97.5 F L Pulse Rate 79 Respiratory Rate 18 Blood Pressure 158/78 H Pulse Oximetry 98 Oxygen Delivery Method Room Air Narrative Exam Narrative: General-no acute distress, well nourished HEENT-moist mucous membranes, no scleral icterus Neck-supple, no lymphadenopathy Chest- non labored respirations, clear to auscultation bilaterally Cardiac-regular rate no peripheral edema Abdomen-right lower quadrant tenderness to palpation no diffuse peritonitis Extremities-warm, well perfused Neurological-alert and oriented, no focal deficits Assessment & Plan Assessment and plan (1) Acute appendicitis: Current visit: Yes Status: Acute Assessment & Plan narrative: This is a 64-year-old woman with acute uncomplicated appendicitis. 12 hours of symptoms, white count 13, CT demonstrates 11 mm dilated appendix without abscess. We discussed the nature of appendicitis and its management. A laparoscopic appendectomy is indicated. We discussed the risks of the operation including bleeding infection conversion to open damage to surrounding structures leak. Her questions have been answered and she is in agreement with this plan. -laparoscopic appendectomy -NPO IV fluids -Zosyn Quality VTE Deep Vein Thrombosis/Pulmonary Embolism Present on Admission: No
[2019-07-10] MEDS: SODIUM CHLORIDE 0.9% 1,000 ML 100 ML IV (19:18)
[2019-07-10] MEDS: PIPERACILLIN-TAZO 3.375 GM/50 ML FROZ.PIGGY IV (19:24)
[2019-07-10] MEDS: LACTATED RINGERS 1,000 ML 42 ML IV (21:14)
--- NOTE | 2019-07-10 21:24 | PC.NURSE ---
Pt arrived on unit at approx 1624 by BLS ambulance. She was A and O x 4, VSS. She rated her abdominal pain 7/10 and got good relief from 2 mg IVP MS. She c/o of nausea earlier in the day, but not since admit. She was taken down to the OR at approx 5. She has a patent IV started in the [facility] ER and LR running at 42 mLs/hr. One dose of Zosyn was given.
--- NOTE | 2019-07-10 21:33 | SUR.OPER ---
Supine on padded OR bed, head on pillow, arm padded and tucked at side, legs uncrossed, safety belt at thigh, tape over blanket over lower legs .
[2019-07-10] MEDS: BUPIVACAINE 0.5% (PF) VIAL 30 ML INJ (21:41)
--- NOTE | 2019-07-10 22:14 | PM.OP.1 ---
Operative Date/Time/Diagnoses Date of procedure: 07/10/19 Time of procedure: 22:14 Pre-op diagnosis: Acute appendicitis Post-op diagnosis: same Procedure & Clinicians Procedure: Laparoscopic appendectomy Same procedure as scheduled: Yes Indications: This is a 64-year-old female who presented with acute uncomplicated appendicitis. 12 hours of abdominal pain mild leukocytosis and a CT demonstrating and dilated appendix without abscess. Surgeon: Willian Long Click Yes if Unassisted: Yes Anesthesia Type: General Operative Notes Findings: Acute non perforated appendicitis Specimen(s): other (Appendix) Estimated Blood Loss (mL): 10 Procedure in detail: Patient was brought to the operating room placed supine on the table. Bilateral lower extremity compression devices were applied. They were induced and intubated with an endotracheal tube. They received 3.375 g of Zosyn prior to skin incision. They were prepped and draped in sterile fashion. Time-out was performed to ensure the correct patient procedure necessary equipment within the operating room. The skin was infiltrated with 0.25% bupivacaine. A infraumbilical incision was made the umbilical stalk was grasped and elevated and incision was made and the abdomen was entered atraumatically. A 12 mm balloon trocar was then placed into the incision and pneumoperitoneum was established. The scope was then inspected abdomen inspected and there was no evidence of injury upon entry. Two 5 mm working ports were then placed supra pubic and in the left lower quadrant. The small bowel was then swept to the upper aspect of the abdomen. The tenie were followed to the base of the cecum where the appendix was identified. It was acutely inflamed but not perforated The appendix was grasped and a window within the mesentery was made. The appendix was then transected from the cecum using the Endo GI stapler with a blue load. Next the mesentery to the appendix was taken with the stapler using the vascular staple load. The specimen was removed using the Endo-Catch bag. The abdomen was inspected for hemostasis. The ports were then removed under direct visualization. The umbilical fascial incision was closed with 0 Vicryl in a figure-eight fashion. The skin wounds were irrigated and closed with Monocryl followed by the application of Dermabond. Sponge instrument count at the end of the operation was correct. The patient tolerated procedure well was extubated and transferred to the postoperative care unit in stable condition Complications: none Post-operative Condition: stable Disposition: observation
--- NOTE | 2019-07-10 22:31 | SUR.PHASEI ---
Stable pacu stay, report attempted, RN to call back.
[2019-07-10] MEDS: ACETAMINOPHEN 325 MG TABLET 650 MG PO (23:37)
[2019-07-11 00:50] VITALS: BP 136/71; PULSE 80; RESP 16; TEMP 37.2; O2SAT 92
[2019-07-11 02:05] VITALS: BP 124/64; PULSE 91; RESP 16; TEMP 37.2; O2SAT 93
[2019-07-11 03:00] VITALS: O2SAT 93
[2019-07-11] MEDS: ACETAMINOPHEN 325 MG TABLET 650 MG PO (06:19)
[2019-07-11] MEDS: PANTOPRAZOLE 20 MG TABLET PO (06:19)
[2019-07-11 06:35] VITALS: BP 131/70; PULSE 84; RESP 16; TEMP 36.6; O2SAT 92
--- NOTE | 2019-07-11 06:43 | PC.NURSE ---
Pt reports very minimal pain. Rating it the highest at 2 out of 10, relieved with Tylenol. No nausea NS@100mL/hr as ordered. b/l SCDs on throughout night. 3 lap sites surgi-glued are well approximated and look good.
[2019-07-11 07:40] VITALS: BP 132/64; PULSE 68; RESP 16; TEMP 36.3; O2SAT 94
[2019-07-11 07:41] VITALS: O2SAT 93
--- NOTE | 2019-07-11 08:38 | CM.DANOTE ---
DCP/Assessment: Reviewed chart. Patient is a 64yr old female admitted to [facility] under [facility]BS status with abdominal pain. PCP is Dr. Walker. Primary payor is [facility]. Met with patient and family/Victor Manuel at bedside explained CM/SW role. Patient alert and oriented, having breakfast at time of visit. Patient appendectomy on 07-10-19. Patient reports feeling great and plans to go home today. Patient completely I in all ADL's prior to admit. No identified d/c planning needs at this time. P: Home today with family support. RITIKA Duran Discharge Planning/Care Management CM Discharge Assessment Start: 07/11/19 08:36 Freq: Status: Active Protocol: Document 07/11/19 08:36 KJS (Rec: 07/11/19 08:38 KJS [id number]) Discharge Planning Assessment Assigned Compatibility Test Engineer RITIKA Duran Contact Information Victor Manuel eLster (family) [phone] Advance Directives? No Advance Directives on File No: RN has given patient information and a green polst form History Provided By Patient,Family Member,Medical Record Prior Living Arrangements Apartment/Condo Household Members significant other Type of transporation used prior to Drives own vehicle admit Independent with ADL's Yes Is patient alert and oriented? Yes Caregiver for Another No Barriers to Discharge No Discharge Plan Home Transportation Arrangement Arm[place] per pvt vehicle Referrals Initiated None needed Whiteboard Updated in Patient Room with Yes name and ext. # of Compatibility Test Engineer Review Status In Process Next Review Type Continued Stay Review
--- NOTE | 2019-07-11 09:19 | PM.DS.1 ---
History of Present Illness History of Present Illness Chief complaint: R/O APPY Narrative: This is a 64-year-old woman with acute uncomplicated appendicitis transferred from an outside hospital. Umbilical pain began at 5:00 a.m. today migrated to the right lower quadrant. Associated with nausea no vomiting no diarrhea no fever. At the outside hospital labs significant for white count 13, hematocrit 41, creatinine 0.9 normal lipase, negative urinalysis. CT demonstrates 11 mm appendix with stranding no free fluid no air no abscess. No history of coronary artery disease, valvular disease, arrhythmia, peripheral vascular disease, diabetes, pulmonary or renal insufficiency. They are a nonsmoker and not on anticoagulation. There is a remote history of TIA. Discharge Providers Provider Date of admission: 07/10/19 16:58 Discharge Date: 07/11/19 Discharge provider: Willian Long MD Summary Hospital Course Discharge Diagnosis: acute appendicitis Hospital Course: This is 64-year-old female who presented to the hospital with acute appendicitis and underwent a laparoscopic appendectomy. The appendix was acutely inflamed but not perforated. Postoperatively the patient did well is without fever nausea vomiting tolerating regular diet ambulatory and urinating spontaneously. Status at Discharge Functional status at discharge: independent ambulation Overall status at discharge: patient is back to baseline Exam Vital Signs (past 8 hours): - 07/11/19 02:05 07/11/19 03:00 07/11/19 06:35 Temperature 98.9 F 97.9 F Pulse Rate 91 H 84 Respiratory Rate 16 16 Blood Pressure 124/64 131/70 Pulse Oximetry 93 93 92 07/11/19 07:40 07/11/19 07:41 Temperature 97.4 F L Pulse Rate 68 Respiratory Rate 16 Blood Pressure 132/64 Pulse Oximetry 94 93 Oxygen Delivery Method Room Air Oxygen Flow Rate 0 Narrative Exam Narrative: General-no acute distress, well nourished Chest- non labored respirations, clear to auscultation bilaterally Cardiac-regular rate no peripheral edema Abdomen-soft, incisions clean dry intact Extremities-warm, well perfused Neurological-alert and oriented, no focal deficits Discharge Plan Discharge Plan Patient Disposition: Home Discharge orders & Medications Prescriptions: New tramadol 50 mg tablet 50 mg PO Q6H PRN (Reason: pain) Qty: 30 RF: 0 acetaminophen [Tylenol] 325 mg capsule 650 mg PO QID PRN (Reason: pain) Qty: 60 RF: 0 Continued pantoprazole [Protonix] 40 mg Recon Soln 40 mg IV DAILY RF: 0 trazodone 50 mg Tablet 50 mg PO BEDTIME RF: 0 thyroid (pork) [[place] Thyroid] 30 mg Tablet 30 mg PO DAILY RF: 0 ranitidine HCl 300 mg Tablet 300 mg PO BID RF: 0 lovastatin 10 mg Tablet 10 mg PO QPM RF: 0 Calcium 500 1 tab PO DAILY RF: 0 Multi Vitamin 1 tab PO DAILY RF: 0 cholecalciferol (vitamin D3) tablet 5,000 mg PO DAILY RF: 0 Follow up/Referrals: Willian Long MD [Physician] - Diet/Activity/Treatments Diet: Regular Activity: No driving while taking narcotics. No lifting >20 lbs x 4 weeks. Skin/Wound/Dressing Care Report to your healthcare provider any signs of infection, such as:: chills, fever, increased pain and unusual redness Discharge Data Attending Provider: Willian Long Admit Date/Time: 07/10/19 16:58 Quality VTE Deep Vein Thrombosis/Pulmonary Embolism Present on Admission: No
--- NOTE | 2019-07-11 10:37 | PC.NURSE ---
Discharge: IV dc'd intact. Reviewed all d/c instructions thoroughly with patient and spouse. Ok to shower, no swimming/tub/pool until cleared by MD. No roller skating until cleared by MD. Sent with script for Tramadol- her pain has been well-controlled with Tylenol, so she may not fill the script. Given follow up appt info, and reasons with which to call MD prior to f/u. Patient verbalized understanding of all instructions and stated no further questions. All personal belongings sent with patient. Wheeled out to private vehicle by nursing staff.
== END 2019-07-11 10:41 | disposition home or self-care (01) ==
PROVIDERS: Admitting Provider Surgery; Visit Provider Surgery
PROC: 0DTJ4ZZ Resection of Appendix, Percutaneous Endoscopic Approach (ICD-10-PCS; CPT 44970; principal; 2019-07-10 21:00)
DX: K35.80 Unspecified acute appendicitis (principal); E03.9 Hypothyroidism, unspecified; E78.5 Hyperlipidemia, unspecified; K21.9 Gastro-esophageal reflux disease without esophagitis; R10.31 Right lower quadrant pain
CPT/HCPCS: 44970; 99220; G0378; G0379; J0330; J1100; J2270; J2405; J2543; J2704; J3010

== ENCOUNTER → 2019-10-30 12:07 | Outpatient (CLI) | payer OTHER, SELFPAY ==
[2019-07-10 17:59] VITALS: BMI 60.5
--- NOTE | 2019-10-30 | DI.MG.S_ITS ---
BILATERAL DIGITAL SCREENING MAMMOGRAM 3D/2D WITH CAD: 10/30/2019 CLINICAL: Routine screening. Family history of breast cancer. Comparison is made to exams dated: 09/30/2017 mammogram, 07/25/2015 mammogram, and 12/12/2013 mammogram - [facility]. The tissue of both breasts is heterogeneously dense. This may lower the sensitivity of mammography. Current study was also evaluated with a Computer Aided Detection (CAD) system. No significant masses, calcifications, or other findings are seen in either breast. There has been no significant interval change. IMPRESSION: NEGATIVE There is no mammographic evidence of malignancy. A 1 year screening mammogram is recommended. This exam was interpreted at Station ID: [id number]. NOTE: For mammograms, a report in lay terms will be sent to the patient. Approximately 15% of breast malignancies will not be visualized mammographically. In the management of a palpable breast mass, a negative mammogram must not discourage biopsy of a clinically suspicious lesion. Electronically Signed By: Odalys austin/grzegorz:10/30/2019 14:24:39 letter sent: Normal Exam ACR BI-RADS Category 1: Negative [id number]
== END ==
PROVIDERS: PCP Family Medicine; Referring Provider Family Medicine; Visit Provider Family Medicine
DX: Z12.31 Encounter for screening mammogram for malignant neoplasm of breast (principal); Z80.3 Family history of malignant neoplasm of breast; M85.852 Other specified disorders of bone density and structure, left thigh; Z78.0 Asymptomatic menopausal state
CPT/HCPCS: 77063; 77067; 77080

== ENCOUNTER 2021-09-05 19:32 | Inpatient (IN) | payer OTHER, MEDICARE, SELFPAY ==
[2019-07-10 17:59] VITALS: BMI 60.5
[2021-09-05] VITALS (8 sets, daily range): BP systolic 129–162; BP diastolic 89–104; PULSE 94–126; RESP 18–28; TEMP 36.9–37.4; O2SAT 96–98; BMI 28.3
--- NOTE | 2021-09-05 19:36 | ED_ITS ---
HPI - GI Bleed General Chief complaint: GI Bleed Stated complaint: Vomiting Blood, Upper Abd Pain Time Seen by Provider: 09/05/21 19:33 History of Present Illness HPI Narrative: 66F nonsmoker with history of esophagitis, hypercholesterolemia, TIA presents with significant other and a chief complaint of epigastric pain and vomiting, multiple episodes of coffee-ground emesis over the course of the day. She is feeling a bit fatigued and has palpitations but is not necessarily dizzy or lightheaded. She has had no fever or chills. She denies any extensive history of alcohol abuse, known liver disease and has had prior endoscopy noting esophagitis. She denies the use of blood thinners or frequent use of NSAIDs. She denies bright red emesis or any abnormal bowel movements Related Data Home Medications Medication Instructions Recorded Confirmed lovastatin 10 mg tablet 20 mg PO QPM 01/25/18 09/05/21 ranitidine HCl 300 mg tablet 300 mg PO BID 01/25/18 09/05/21 thyroid (pork) 30 mg tablet 30 mg PO DAILY 01/25/18 09/05/21 ([place] Thyroid) Calcium 500 1 tab PO DAILY 02/09/18 09/05/21 Multi Vitamin 1 tab PO DAILY 02/09/18 09/05/21 cholecalciferol (vitamin D3) 5,000 mg PO DAILY 02/09/18 09/05/21 estradiol 10 mcg vaginal tablet 10 mcg VAGINAL 09/05/21 (Vagifem) levocetirizine 5 mg tablet (Xyzal) 5 mg PO QPM 09/05/21 09/05/21 pantoprazole 40 mg tablet,delayed 40 mg PO BID 09/05/21 09/05/21 release Previous Rx's Medication Instructions Recorded tramadol 50 mg tablet 50 mg PO Q6H PRN #30 tab 07/11/19 Allergies Allergy/AdvReac Type Severity Reaction Status Date / Time metronidazole [METRONIDAZOLE] Allergy Severe FULL BODY Verified 09/05/21 19:53 HIVES Review of Systems Review of Systems Narrative: GENERAL: Denies chills, fatigue, malaise, fever, sweats. HEENT: Denies sinus pain, ear pain, sore throat, difficulty swallowing, dizziness. RESPIRATORY: Denies dyspnea, cough, wheezing, hemoptysis, sputum. CARDIOVASCULAR: See HPI, GASTROINTESTINAL: See HPI : Denies dysuria, frequency, incontinence, hematuria, urinary retention. MUSCULOSKELETAL: denies weakness, joint pain, or bony pain SKIN: Denies rash, skin lesions, or other NEUROLOGIC: Denies weakness, headache, numbness, change in speech, confusion, seizures, incoordination. PSYCHIATRIC: No concerning psychosocial issues. 12 point review of systems is negative except for those stated above Patient History Medical History (Updated 09/05/21 @ 22:22 by Ash Rinaldi DO) Cataract Cyst Depression Gastric reflux syndrome Hyperlipidemia Hypothyroidism Surgical History H/O section Status post laser cataract surgery of both eyes Social History household members: significant other Smoking Status: Never smoker alcohol intake: current Smoking Status: Never smoker alcohol intake frequency: 0-2 drinks per day Substance Use Type: does not use Exam Narrative Exam Narrative: GENERAL: [66 year old patient appears stated age. Well-developed patient, in mild distress. HEAD: Atraumatic. Normocephalic. EYES: Pupils equal round and reactive. Extraocular motions intact. No scleral icterus. No injection or drainage. ENT: Nose without bleeding, purulent drainage. Throat without erythema, tonsillar hypertrophy or exudate. Airway patent. NECK: Trachea midline. Non tender CARDIOVASCULAR: Regular rate and rhythm without murmurs, gallops, or rubs. RESPIRATORY: Clear to auscultation. Breath sounds equal bilaterally. No wheezes, rales, or rhonchi. GASTROINTESTINAL: Abdomen soft, mild epigastric tenderness, nondistended. EXTREMITIES: No edema or joint tenderness. BACK: Nontender without deformity or crepitance. No flank tenderness. NEURO: AOx3. SKIN: No rash or erythema of visible areas Initial Vital Signs Initial Vital Signs: Vital Signs Pulse Rate 124 H 09/05/21 19:42 Pulse Oximetry 96 09/05/21 19:42 Course Orders Ordered: ED Orders 09/05/21 19:45 COVID19 -Nasal swab/Pre-Proc Stat 09/05/21 19:50 Complete Blood Count AUTO DIFF Stat Comprehensive Metabolic Panel Stat Prothrombin Time INR Stat Type and Screen Stat Sodium Chloride (Normal Saline 0.9%) 1,000 mls @ 125 mls/hr IV CONT [place] Last Admin: 09/05/21 22:04 Dose: 125 mls/hr Documented by: CONI Naloxone HCl (Naloxone 0.4 Mg/Ml Vial) 0.2 mg IV Q2MIN PRN PRN Reason: Opiate Reversal Ondansetron HCl (Ondansetron 4 Mg/2 Ml Inj) 4 mg IV Q8HR PRN PRN Reason: Nausea And Vomiting Pantoprazole Sodium (Pantoprazole 40 Mg Vial) 40 mg IV DAILY [place] Trazodone HCl (Trazodone 50 Mg Tablet) 50 mg PO BEDTIME [place] Last Admin: 09/05/21 22:01 Dose: Not Given Documented by: CONI Discontinued Medications Sodium Chloride (Normal Saline 0.9%) 500 mls @ 1,000 mls/hr IV BOLUS ONE Stop: 09/05/21 20:32 Last Infusion: 09/05/21 21:00 Dose: 0 mls/hr Documented by: Admin: 09/05/21 20:27 Dose: 1,000 mls/hr Documented by: SHOLA Ondansetron HCl (Ondansetron 4 Mg/2 Ml Inj) 4 mg IV NOW ONE Stop: 09/05/21 19:46 Last Admin: 09/05/21 19:52 Dose: 4 mg Documented by: AUSTIN Pantoprazole Sodium (Pantoprazole 40 Mg Vial) 40 mg IV NOW ONE Stop: 09/05/21 19:46 Last Admin: 09/05/21 19:52 Dose: 40 mg Documented by: AUSTIN Vital Signs Vital signs: Vital Signs - 8 hr 09/05/21 19:42 09/05/21 19:53 09/05/21 20:00 Temperature 98.5 F Pulse Rate 124 H 126 H 107 H Respiratory Rate 28 H 25 H Blood Pressure 153/104 H Pulse Oximetry 96 97 96 09/05/21 20:19 09/05/21 20:30 Temperature Pulse Rate 102 H 98 H Respiratory Rate 22 23 Blood Pressure 129/91 H 143/89 H Pulse Oximetry 97 96 MDM - GI Bleed Lab Data Result diagrams: 09/05/21 19:50 09/05/21 19:50 Labs: Lab Results 09/05/21 09/05/21 09/05/21 Range/Units 19:45 19:50 19:50 WBC 13.1 H (4.5-11.0) X10^3/uL RBC 4.98 (4.0-5.2) X10^6/uL Hgb 14.7 (12.0-16.0) g/dL Hct 43.6 (36-46) % MCV 87.5 (80-100) fL MCH 29.6 (26-34) PG MCHC 33.8 (30-36) % RDW 13.1 (11.6-14.8) % Plt Count 359 (150-400) X10^3/uL Neut % (Auto) 85.2 H (50-75) % Lymph % (Auto) 9.1 L (25-40) % [place] % (Auto) 5.3 (3-14) % Eos % (Auto) 0.0 L (2-4) % Baso % (Auto) 0.4 (0-2) % Neut # (Auto) 17054 H (0260-0535) /uL Lymph # (Auto) 1200 (0777-9911) /uL [place] # (Auto) 700 (0-900) /uL Eos # (Auto) 0 (0-450) /uL Baso # (Auto) 0 (0-100) /uL PT (10.1-12.7) SECONDS INR (0.9-1.3) Sodium 138 (137-145) mmol/L Potassium 3.5 (3.4-5.1) mmol/L Chloride 105 (98-107) mmol/L Carbon Dioxide 23 (22-32) mmol/L BUN 10 (7-17) mg/dL Creatinine 0.97 (0.52-1.04) mg/dL Estimated GFR 57.5 L (>60) mL/min BUN/Creatinine Ratio 10.3 (6-22) Glucose 165 H (80-110) mg/dL Calcium 9.9 (8.4-10.2) mg/dL Total Bilirubin 0.8 (0.2-1.3) mg/dL AST 21 (14-36) IU/L ALT 25 (<35) IU/L Alkaline Phosphatase 59 (38-126) U/L Total Protein 8.3 H (6.3-8.2) g/dL Albumin 4.7 (3.5-5.0) g/dL Globulin 3.6 (1.7-4.1) g/dL Albumin/Globulin Ratio 1.3 (1.0-2.8) SARS-CoV-2 (PCR) Negative (Negative) Blood Type Antibody Screen 09/05/21 09/05/21 Range/Units 19:50 19:50 WBC (4.5-11.0) X10^3/uL RBC (4.0-5.2) X10^6/uL Hgb (12.0-16.0) g/dL Hct (36-46) % MCV (80-100) fL MCH (26-34) PG MCHC (30-36) % RDW (11.6-14.8) % Plt Count (150-400) X10^3/uL Neut % (Auto) (50-75) % Lymph % (Auto) (25-40) % [place] % (Auto) (3-14) % Eos % (Auto) (2-4) % Baso % (Auto) (0-2) % Neut # (Auto) (5797-4380) /uL Lymph # (Auto) (2709-6838) /uL [place] # (Auto) (0-900) /uL Eos # (Auto) (0-450) /uL Baso # (Auto) (0-100) /uL PT 12.9 H (10.1-12.7) SECONDS INR 1.1 (0.9-1.3) Sodium (137-145) mmol/L Potassium (3.4-5.1) mmol/L Chloride (98-107) mmol/L Carbon Dioxide (22-32) mmol/L BUN (7-17) mg/dL Creatinine (0.52-1.04) mg/dL Estimated GFR (>60) mL/min BUN/Creatinine Ratio (6-22) Glucose (80-110) mg/dL Calcium (8.4-10.2) mg/dL Total Bilirubin (0.2-1.3) mg/dL AST (14-36) IU/L ALT (<35) IU/L Alkaline Phosphatase (38-126) U/L Total Protein (6.3-8.2) g/dL Albumin (3.5-5.0) g/dL Globulin (1.7-4.1) g/dL Albumin/Globulin Ratio (1.0-2.8) SARS-CoV-2 (PCR) (Negative) Blood Type A Positive Antibody Screen Negative MDM Narrative Medical decision making narrative: Patient with history of esophagitis presents with multiple episodes of coffee- ground emesis. She is initially tachycardic without improves over the course of the visit. She has no history of alcohol abuse, known varices or liver disease. Initial H&H is stable. She is given PPI, gentle hydration, antiemetics and kept NPO. She will require hospitalization for trending of her H&H and ongoing treatment. She understands and agrees with the plan. Discharge Plan Departure Patient Disposition: Admitted As Inpatient Clinical Impression: Upper gastrointestinal hemorrhage Admit Date/Time: 09/05/21 20:36 Admit Provider: Oma Walker
[2021-09-05] MEDS: ONDANSETRON 4 MG/2 ML INJ IV (19:52)
[2021-09-05] MEDS: PANTOPRAZOLE 40 MG VIAL IV (19:52)
[2021-09-05 19:59] LABS: Add Manual Diff / Slide Review NO; Basophils Absolute Auto 0 /uL (0-100); Basophils Percent Auto 0.4 % (0-2); Eosinophils Absolute Auto 0 /uL (0-450); Hematocrit 43.6 % (36-46); Hemoglobin 14.7 g/dL (12.0-16.0); Lymphocytes Absolute Auto 1200 /uL (1100-4500); Lymphocytes Percent Auto 9.1 % (25-40); Mean Corpuscular HGB Conc 33.8 % (30-36); Mean Corpuscular Hemoglobin 29.6 PG (26-34); Mean Corpuscular Volume 87.5 fL (80-100); Monocytes Absolute Auto 700 /uL (0-900); Monocytes Percent Auto 5.3 % (3-14); Neutrophils Absolute Auto 11100 /uL (1500-7000); Neutrophils Percent Auto 85.2 % (50-75); Platelet Count 359 X10^3/uL (150-400); Red Blood Cell Count 4.98 X10^6/uL (4.0-5.2); Red Cell Distribution Width 13.1 % (11.6-14.8); White Blood Cell Count 13.1 X10^3/uL (4.5-11.0)
[2021-09-05 20:01] LABS: INR 1.1 (0.9-1.3); Prothrombin Time 12.9 SECONDS (10.1-12.7)
[2021-09-05 20:06] LABS: Alanine Aminotransferase 25 IU/L (<35); Albumin 4.7 g/dL (3.5-5.0); Albumin Globulin Ratio 1.3 (1.0-2.8); Alkaline Phosphatase 59 U/L (38-126); Aspartate Aminotransferase 21 IU/L (14-36); BUN Creatinine Ratio 10.3 (6-22); Bilirubin Total 0.8 mg/dL (0.2-1.3); Blood Urea Nitrogen 10 mg/dL (7-17); Calcium 9.9 mg/dL (8.4-10.2); Carbon Dioxide 23 mmol/L (22-32); Chloride 105 mmol/L (98-107); Estimated Glomerular Filt Rate 57.5 mL/min (>60); Globulin 3.6 g/dL (1.7-4.1); Glucose 165 mg/dL (80-110); HEMOLYSIS < 15 (0-50); Potassium 3.5 mmol/L (3.4-5.1); Sodium 138 mmol/L (137-145); Total Protein 8.3 g/dL (6.3-8.2)
[2021-09-05 20:09] LABS: COVID19 -Nasal RAPID Negative (Negative)
[2021-09-05] MEDS: SODIUM CHLORIDE 0.9% 500 ML 1000 ML IV (20:27)
[2021-09-05] MEDS: SODIUM CHLORIDE 0.9% 1,000 ML 125 ML IV (22:04)
[2021-09-06] VITALS (16 sets, daily range): BP systolic 113–160; BP diastolic 55–89; PULSE 74–101; RESP 12–24; TEMP 36.1–37.1; O2SAT 93–99; BMI 28.9
--- NOTE | 2021-09-06 | PATH_ITS ---
[facility] Accession Number: [id number] . 01 Material submitted: . PART A: duodenum - BIOPSY DUODENUM PART B: gastrointestinal site - BIOPSY ANTRUM PART C: gastrointestinal site - GASTRIC POLYPS . 02 Diagnosis: A. Duodenum, Biopsy: Duodenal mucosa with no diagnostic abnormality. Negative for active inflammation, features of sprue, dysplasia, or malignancy. . B. Stomach, Antrum, Biopsy: Antral mucosa with no diagnostic abnormality. Negative for Helicobacter by immunohistochemistry. Negative for intestinal metaplasia. Negative for dysplasia and malignancy. . C. Stomach, Polyps, Biopsies: Fundic gland polyp. Negative for Helicobacter organisms on H/E stain. Negative for intestinal metaplasia. Negative for dysplasia and malignancy. . [facility] 09/10/2021 1356 Local . 02 Electronically signed: . Kylee Hoang MD, Pathologist NPI- [id number] . 01 Gross description: . Part A: BIOPSY DUODENUM: Received in formalin are 2 fragment(s) of [place], soft tissue measuring 0.1 x 0.1 x 0.1 cm to 0.2 x 0.2 x 0.2 cm submitted entirely in 1 cassette(s) Part B: BIOPSY ANTRUM: Received in formalin are 2 fragment(s) of h[place], soft tissue measuring 0.2 x 0.2 x 0.2 cm to 0.3 x 0.2 x 0.2 cm submitted entirely in 1 cassette(s) Part C: GASTRIC POLYPS: Received in formalin is 1 fragment(s) of hudson, soft tissue measuring 0.2 x 0.2 x 0.2 cm submitted entirely in 1 cassette(s) /ZHEN 09/08/2021 2207 Local . 02 Microscopic: . B. An immunohistochemical stain was performed to evaluate for Helicobacter organisms and is negative. The control stain showed appropriate reactivity. . * This test was developed and its performance characteristics determined by [facility]. It has not been cleared or approved by the U.S. Food and Drug Administration. The FDA has determined that such clearance or approval is not necessary. This test is used for clinical purposes. It should not be regarded as investigational or for research. . 02 Pathologist provided ICD-10: R10.9 . 02 CPT . 720576, 446979, 703918, [id number] Performed at: 01 [facility] [address] [id number] MD Sharif Ca MD Phone: [phone] Performed at: 02 [facility] [id number] [place] [address] [id number] MD Kylee Hoang MD Phone: [phone]
--- NOTE | 2021-09-06 05:34 | PC.NURSE ---
Pt. admitted at 2124 last night. Arrived to the unit via wheelchair. Pt. is alert and oriented, oriented to call light use and requested her to ask for assistance if she needed to get up to use the bathroom due to lines that she is hooked up to. Pt. agreed. ' Pt. so far denies pain, denies N/V during the shift. VSS with tele showing SR. Pt. is NPO after MN.
[2021-09-06] MEDS: SODIUM CHLORIDE 0.9% 1,000 ML 125 ML IV (06:40)
[2021-09-06 06:55] LABS: Add Manual Diff / Slide Review NO; Basophils Absolute Auto 0 /uL (0-100); Basophils Percent Auto 0.4 % (0-2); Eosinophils Absolute Auto 100 /uL (0-450); Eosinophils Percent Auto 0.8 % (2-4); Hematocrit 36.7 % (36-46); Hemoglobin 12.6 g/dL (12.0-16.0); Lymphocytes Absolute Auto 2500 /uL (1100-4500); Lymphocytes Percent Auto 30.4 % (25-40); Mean Corpuscular HGB Conc 34.4 % (30-36); Mean Corpuscular Hemoglobin 30.2 PG (26-34); Mean Corpuscular Volume 87.8 fL (80-100); Monocytes Absolute Auto 700 /uL (0-900); Monocytes Percent Auto 7.9 % (3-14); Neutrophils Absolute Auto 5000 /uL (1500-7000); Neutrophils Percent Auto 60.5 % (50-75); Platelet Count 268 X10^3/uL (150-400); Red Blood Cell Count 4.18 X10^6/uL (4.0-5.2); Red Cell Distribution Width 13.3 % (11.6-14.8); White Blood Cell Count 8.2 X10^3/uL (4.5-11.0)
[2021-09-06 07:02] LABS: Alanine Aminotransferase 18 IU/L (<35); Albumin 3.5 g/dL (3.5-5.0); Albumin Globulin Ratio 1.2 (1.0-2.8); Alkaline Phosphatase 35 U/L (38-126); Aspartate Aminotransferase 16 IU/L (14-36); BUN Creatinine Ratio 10.2 (6-22); Bilirubin Total 0.7 mg/dL (0.2-1.3); Blood Urea Nitrogen 9 mg/dL (7-17); Calcium 8.7 mg/dL (8.4-10.2); Carbon Dioxide 29 mmol/L (22-32); Chloride 110 mmol/L (98-107); Estimated Glomerular Filt Rate > 60.0 mL/min (>60); Globulin 2.9 g/dL (1.7-4.1); Glucose 91 mg/dL (80-110); HEMOLYSIS < 15 (0-50); Potassium 3.3 mmol/L (3.4-5.1); Sodium 141 mmol/L (137-145); Total Protein 6.4 g/dL (6.3-8.2)
[2021-09-06] MEDS: PANTOPRAZOLE 40 MG VIAL IV (09:57)
--- NOTE | 2021-09-06 10:02 | PM.CN ---
History of Present Illness Consult details Date Patient Seen: 09/06/21 Time Patient Seen: 10:02 Chief complaint: Vomiting Blood, Upper Abd Pain Narrative: 66-year-old woman who started vomiting coffee-ground emesis yesterday. She had multiple episodes of emesis over the course of the day yesterday. It has since subsided. She reports she is history of GERD and esophagitis. She reports frequent upper abdominal pain after eating. She had an EGD by Dr. Cavazos in 2016 which showed antral erythema and gastric body polyps which turned out to be fundic gland polyps. She had another EGD last year in [place] which she believes was normal. She denies taking any NSAIDs recently. Meds Home Medications and Allergies Home Medications Medication Instructions Recorded Confirmed Type lovastatin 10 mg tablet 20 mg PO QPM 01/25/18 09/05/21 History thyroid (pork) 30 mg tablet 30 mg PO DAILY 01/25/18 09/05/21 History ([place] Thyroid) Calcium 500 1 tab PO DAILY 02/09/18 09/05/21 History Multi Vitamin 1 tab PO DAILY 02/09/18 09/05/21 History cholecalciferol (vitamin D3) 5,000 mg PO DAILY 02/09/18 09/05/21 History estradiol 10 mcg vaginal tablet 10 mcg VAGINAL 2XW 09/05/21 09/05/21 History (Vagifem) levocetirizine 5 mg tablet (Xyzal) 5 mg PO QPM 09/05/21 09/05/21 History pantoprazole 40 mg tablet,delayed 40 mg PO BID 09/05/21 09/05/21 History release Allergies Allergy/AdvReac Type Severity Reaction Status Date / Time metronidazole [METRONIDAZOLE] Allergy Severe FULL BODY Verified 09/05/21 19:53 HIVES Exam Vital Signs (past 8 hours): - 09/06/21 02:16 09/06/21 05:37 09/06/21 06:00 Temperature 97.8 F 97.5 F L Pulse Rate 79 84 Respiratory Rate 18 18 Blood Pressure 127/69 113/55 L Pulse Oximetry 99 93 93 09/06/21 09:29 Temperature 97.9 F Pulse Rate 77 Respiratory Rate 12 Blood Pressure 148/77 H Pulse Oximetry 96 Oxygen Delivery Method Room Air Oxygen Flow Rate 0 Const Orientation: alert and awake Resp Effort & Inspection: normal respiratory effort GI Other: Abdomen soft, nontender. No Wilkerson sign. Objective Labs Result Diagrams: 09/06/21 05:59 09/06/21 05:59 Labs: Laboratory Results - last 24 hr 09/05/21 09/05/21 09/05/21 19:45 19:50 19:50 WBC 13.1 H RBC 4.98 Hgb 14.7 Hct 43.6 MCV 87.5 MCH 29.6 MCHC 33.8 RDW 13.1 Plt Count 359 Neut % (Auto) 85.2 H Lymph % (Auto) 9.1 L [place] % (Auto) 5.3 Eos % (Auto) 0.0 L Baso % (Auto) 0.4 Neut # (Auto) 05952 H Lymph # (Auto) 1200 [place] # (Auto) 700 Eos # (Auto) 0 Baso # (Auto) 0 PT INR Sodium 138 Potassium 3.5 Chloride 105 Carbon Dioxide 23 BUN 10 Creatinine 0.97 Estimated GFR 57.5 L BUN/Creatinine Ratio 10.3 Glucose 165 H Calcium 9.9 Total Bilirubin 0.8 AST 21 ALT 25 Alkaline Phosphatase 59 Total Protein 8.3 H Albumin 4.7 Globulin 3.6 Albumin/Globulin Ratio 1.3 SARS-CoV-2 (PCR) Negative Blood Type Antibody Screen 09/05/21 09/05/21 09/06/21 19:50 19:50 05:59 WBC 8.2 RBC 4.18 Hgb 12.6 Hct 36.7 MCV 87.8 MCH 30.2 MCHC 34.4 RDW 13.3 Plt Count 268 Neut % (Auto) 60.5 D Lymph % (Auto) 30.4 D [place] % (Auto) 7.9 Eos % (Auto) 0.8 L Baso % (Auto) 0.4 Neut # (Auto) 5000 Lymph # (Auto) 2500 [place] # (Auto) 700 Eos # (Auto) 100 Baso # (Auto) 0 PT 12.9 H INR 1.1 Sodium Potassium Chloride Carbon Dioxide BUN Creatinine Estimated GFR BUN/Creatinine Ratio Glucose Calcium Total Bilirubin AST ALT Alkaline Phosphatase Total Protein Albumin Globulin Albumin/Globulin Ratio SARS-CoV-2 (PCR) Blood Type A Positive Antibody Screen Negative 09/06/21 05:59 WBC RBC Hgb Hct MCV MCH MCHC RDW Plt Count Neut % (Auto) Lymph % (Auto) [place] % (Auto) Eos % (Auto) Baso % (Auto) Neut # (Auto) Lymph # (Auto) [place] # (Auto) Eos # (Auto) Baso # (Auto) PT INR Sodium 141 Potassium 3.3 L Chloride 110 H Carbon Dioxide 29 BUN 9 Creatinine 0.88 Estimated GFR > 60.0 BUN/Creatinine Ratio 10.2 Glucose 91 Calcium 8.7 Total Bilirubin 0.7 AST 16 ALT 18 Alkaline Phosphatase 35 L Total Protein 6.4 Albumin 3.5 Globulin 2.9 Albumin/Globulin Ratio 1.2 SARS-CoV-2 (PCR) Blood Type Antibody Screen PENDING SALE TO [facility] Medical History (Updated 09/05/21 @ 22:22 by Ash Rinaldi DO) Cataract Cyst Depression Gastric reflux syndrome Hyperlipidemia Hypothyroidism Surgical History H/O section Status post laser cataract surgery of both eyes Social History household members: significant other Tobacco & Substance Use Smoking Status: Never smoker alcohol intake: current Assessment & Plan Assessment and plan (1) Upper gastrointestinal hemorrhage: Status: Acute Plan There is concern for upper GI bleeding. Risks and benefits of esophageal gastroduodenoscopy described and she would like to proceed today. COVID-19 COVID-19 status: Negative Result date/Date tested (Pos, Neg/Pending): 09/05/21 Time Spent With Patient Critical Care time: I spent a total of [] minutes of critical care time on this patient's care today; this time is exclusive of procedural time.
--- NOTE | 2021-09-06 10:43 | PM.HP.1 ---
History of Present Illness History of Present Illness Date Patient Seen: 09/06/21 Time Patient Seen: 10:43 Date of Onset of Symptoms: 09/06/21 Chief complaint: Vomiting Blood, Upper Abd Pain Narrative: Patient is a 66-year-old female with a history of esophagitis who presents with chief complaint of epigastric pain heartburn and vomiting. Patient has had longstanding heartburn. Pretty severe. She takes PPIs twice a day and has been using sodium bicarbonate in between on a regular basis. Despite all this she has persistent daily symptoms. She was in her usual state of health until yesterday when she got up and had a cup of coffee. She about an hour later started having vomiting and pretty significant epigastric pain. Quite a bit of heartburn. Her vomiting at that point and then continued about every hour and started noticing dark color to it. As the day progressed she began having more and more darkness and what she felt was coffee-grounds. Her pain continued although did not radiate. Was all epigastric and into her chest. She has had no change in bowel movements. No blood in her stool no black or tarry stools. She has had no other significant new change. She has had no fevers or chills. When she started having more and more dark vomit she elected for coming to the emergency room. Patient otherwise feels as if things are going well. And today is feeling quite a bit better since she is not eating anything. Patient has had a history of appendicitis was felt to like that this. But nothing new. Patient has had a long history of esophagitis and reflux. Back in 2018 she had an EGD which did not show anything significant. She had persistent problems and pain and had a repeat endoscopy which showed some erythema of the esophagus but no ulcers or other change. Patient has not had a history of ulcer issues. Otherwise no significant GI history. Patient has been under lot of stress recently. She has a daughter who has developed schizophrenia is been in an out of treatment and detention. Called her frequently and has a hard time getting away. Feels as if the last week has been and seeding least stressful. With no other changes. Social history. Recently . Works at [employer] here . Social drinker nonsmoking Patient History Medical History Cataract Cyst Depression Gastric reflux syndrome Hyperlipidemia Hypothyroidism Surgical History H/O section Status post laser cataract surgery of both eyes Family & Social History Social History: household members significant other Prior Living Arrangements Apartment/Condo Safety & Behavioral: Feels Safe in Current Yes Environment Been Physically Hurt or No Threatened By a Person Suicidal Ideation Description None Suicide Plan Description No Plan Tobacco & Substance use: Smoking Status Never smoker alcohol intake current alcohol intake frequency 0-2 drinks per day Substance Use Type does not use Meds Home Medications and Allergies Home Medications Medication Instructions Recorded Confirmed Type lovastatin 10 mg tablet 20 mg PO QPM 01/25/18 09/05/21 History thyroid (pork) 30 mg tablet 30 mg PO DAILY 01/25/18 09/05/21 History ([place] Thyroid) Calcium 500 1 tab PO DAILY 02/09/18 09/05/21 History Multi Vitamin 1 tab PO DAILY 02/09/18 09/05/21 History cholecalciferol (vitamin D3) 5,000 mg PO DAILY 02/09/18 09/05/21 History estradiol 10 mcg vaginal tablet 10 mcg VAGINAL 2XW 09/05/21 09/05/21 History (Vagifem) levocetirizine 5 mg tablet (Xyzal) 5 mg PO QPM 09/05/21 09/05/21 History pantoprazole 40 mg tablet,delayed 40 mg PO BID 09/05/21 09/05/21 History release Allergies Allergy/AdvReac Type Severity Reaction Status Date / Time metronidazole [METRONIDAZOLE] Allergy Severe FULL BODY Verified 09/05/21 19:53 HIVES Review of Systems Review of Systems Narrative: All negative except for above. Exam Vital Signs (past 8 hours): - 09/06/21 05:37 09/06/21 06:00 09/06/21 09:29 Temperature 97.5 F L 97.9 F Pulse Rate 84 77 Respiratory Rate 18 12 Blood Pressure 113/55 L 148/77 H Pulse Oximetry 93 93 96 Oxygen Delivery Method Room Air Oxygen Flow Rate 0 Narrative Exam Narrative: Alert smiling female in no acute distress. Lying comfortably in bed. Bulbar conjunctiva are pink. Mucous membranes are moist. Neck supple without adenopathy. Lungs are clear. Heart regular rate and rhythm without murmurs clicks rubs or gallops. Abdomen is soft positive bowel sounds nontender. Extremities without cyanosis clubbing edema. Neurologic exam is nonfocal. Objective Labs Result Diagrams: 09/06/21 05:59 09/06/21 05:59 Labs: Laboratory Results - last 24 hr 09/05/21 09/05/21 09/05/21 19:45 19:50 19:50 WBC 13.1 H RBC 4.98 Hgb 14.7 Hct 43.6 MCV 87.5 MCH 29.6 MCHC 33.8 RDW 13.1 Plt Count 359 Neut % (Auto) 85.2 H Lymph % (Auto) 9.1 L [place] % (Auto) 5.3 Eos % (Auto) 0.0 L Baso % (Auto) 0.4 Neut # (Auto) 73678 H Lymph # (Auto) 1200 [place] # (Auto) 700 Eos # (Auto) 0 Baso # (Auto) 0 PT INR Sodium 138 Potassium 3.5 Chloride 105 Carbon Dioxide 23 BUN 10 Creatinine 0.97 Estimated GFR 57.5 L BUN/Creatinine Ratio 10.3 Glucose 165 H Calcium 9.9 Total Bilirubin 0.8 AST 21 ALT 25 Alkaline Phosphatase 59 Total Protein 8.3 H Albumin 4.7 Globulin 3.6 Albumin/Globulin Ratio 1.3 SARS-CoV-2 (PCR) Negative Blood Type Antibody Screen 09/05/21 09/05/21 09/06/21 19:50 19:50 05:59 WBC 8.2 RBC 4.18 Hgb 12.6 Hct 36.7 MCV 87.8 MCH 30.2 MCHC 34.4 RDW 13.3 Plt Count 268 Neut % (Auto) 60.5 D Lymph % (Auto) 30.4 D [place] % (Auto) 7.9 Eos % (Auto) 0.8 L Baso % (Auto) 0.4 Neut # (Auto) 5000 Lymph # (Auto) 2500 [place] # (Auto) 700 Eos # (Auto) 100 Baso # (Auto) 0 PT 12.9 H INR 1.1 Sodium Potassium Chloride Carbon Dioxide BUN Creatinine Estimated GFR BUN/Creatinine Ratio Glucose Calcium Total Bilirubin AST ALT Alkaline Phosphatase Total Protein Albumin Globulin Albumin/Globulin Ratio SARS-CoV-2 (PCR) Blood Type A Positive Antibody Screen Negative 09/06/21 05:59 WBC RBC Hgb Hct MCV MCH MCHC RDW Plt Count Neut % (Auto) Lymph % (Auto) [place] % (Auto) Eos % (Auto) Baso % (Auto) Neut # (Auto) Lymph # (Auto) [place] # (Auto) Eos # (Auto) Baso # (Auto) PT INR Sodium 141 Potassium 3.3 L Chloride 110 H Carbon Dioxide 29 BUN 9 Creatinine 0.88 Estimated GFR > 60.0 BUN/Creatinine Ratio 10.2 Glucose 91 Calcium 8.7 Total Bilirubin 0.7 AST 16 ALT 18 Alkaline Phosphatase 35 L Total Protein 6.4 Albumin 3.5 Globulin 2.9 Albumin/Globulin Ratio 1.2 SARS-CoV-2 (PCR) Blood Type Antibody Screen Assessment & Plan Assessment & Plan narrative: Upper GI bleed. Probably secondary to possible ulcer disease. Possible esophagitis. Hematocrit has dropped 7 points some of which is secondary to fluid hydration. She has been type and screen. At this point do not need to consider blood. Appears to not be actively bleeding. Fluid hydration. IV pain protocol. Consult to surgeons. Appreciate their input. Depending on what they find will decide on further treatment. I suspect it will be a few days. All depending on what we find. Hypokalemia. Mild. Probably secondary to vomiting. Will replace with IV in her fluids. Recheck a.m.. Anemia. Secondary to GI blood loss. Mild at this time. Will watch. Recheck a.m.. Hypothyroidism. Will restart medicine when taking p.o.. Depression. Certainly has large amounts of stress in her life. Does not seem to need medication. Will continue to follow with her usual MD Hyperlipidemia. Stable. Will hold medicines until taking p.o.. GI prophylaxis. On PPI. DVT prophylaxis. High risk secondary to bleeding SCDs. Disposition. Patient least will be here 2 days. Really will be decided once we figure out where her bleeding was. Whether she stable or not. At this point certainly clinically appears to be doing well. Biggest issue will be feeding. Patient understands questions answered. 45 minute spent on exam and discussion with patient, discussion with surgeons, orders and dictation Time Spent With Patient Critical Care time: I spent a total of [] minutes of critical care time on this patient's care today; this time is exclusive of procedural time. Quality VTE Deep Vein Thrombosis/Pulmonary Embolism Present on Admission: Yes
[2021-09-06] MEDS: KCL 20 MEQ IN NS 1,000 ML 125 MEQ IV ×2 (11:43→21:38)
--- NOTE | 2021-09-06 12:01 | PC.NURSE ---
Addendum entered by Arianna Phoenix R.N. 09/06/21 18:25: Patient back from egd, per make up girl they did not find anything significant. Patient tolerated a general diet without any nausea. Addendum entered by Arianna Phoenix R.N. 09/06/21 15:52: Patient given a one time dose of morphine for complaints of headache. She was just taken down for her EGD and pain medication was effective for pain control. Original Note: Assess- Patient is comfortable and has not had any coffee colored emesis. She denies pain and bowel tones are active. IVF just changed to NS with 20meq of potassium. into see patient.
[2021-09-06] MEDS: MORPHINE 2 MG/ML INJ IV (14:04)
--- NOTE | 2021-09-06 15:47 | CM.IDA ---
Initial DCP Assessment Note Pt is a 66 yo female, resident of [place], arrives after vomiting blood, upper abd pain, suspected GI bleed. Patient awaiting conversation w/general surgery at time of this assessment PCP: Angeles Walker Payer: Dianna Reviewed chart, met w/patient and her Victor Manuel, introduced role. 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 Patient is confident about returning home w/spouse to assist upon DC, just awaiting further conversation w/provider re : next steps in medical POC No needs expected from DC planning team although will remain available in case this changes before DC. RITIKA Carvalho Discharge Planning/Care Management CM Discharge Assessment Start: 09/06/21 15:46 Freq: Status: Active Protocol: Document 09/06/21 15:46 ANIL (Rec: 09/06/21 15:47 ANIL [id number]) Discharge Planning Assessment Assigned Grant Officer RITIKA Tiwari DPOA/Assigned Designee Name Victor Manuel Lester, spouse Contact Information [phone] Advance Directives? No Advance Directives on File No: RN has given patient information and a green polst form History Provided By Patient Prior Living Arrangements Apartment/Condo Household Members significant other Type of transporation used prior to Drives own vehicle admit Independent with ADL's Yes Is patient alert and oriented? Yes Barriers to Discharge No Comment Home w/spouse upon DC Discharge Plan Home Transportation Arrangement [employer] per pvt vehicle Referrals Initiated None needed
[2021-09-06] MEDS: LACTATED RINGERS 1,000 ML 84 ML IV (15:59)
--- NOTE | 2021-09-06 16:36 | PM.OP.EGD ---
Operative Date/Time/Diagnoses Date of procedure: 09/06/21 Time of procedure: 16:36 Pre-op diagnosis: GI bleed Post-op diagnosis: same Procedure & Clinicians Study performed: Esophagogastroduodenoscopy Same procedure as scheduled: Yes Indications: Suspected GI bleed Surgeon: Trace Bull Procedure Notes SCOAP/Timeout: Yes Procedure in detail: General endotracheal anesthesia was required because of the suspected active bleeding. A timeout was performed. General endotracheal anesthesia was induced. A bite blocked was placed. The patient was positioned in the left lateral decubitus position. The endoscope was inserted through the bite block and passed through the esophagus and stomach and into the duodenum. The duodenal mucosa appeared normal. Random biopsies were taken with forceps. The scope was withdrawn into the duodenal bulb and random biopsies were taken from the antrum with forceps. The scope was withdrawn into the stomach. There were no ulcers or gastritis. She did have multiple polypoid lesions in the proximal and mid stomach consistent with fundic gland polyps. One of these polyps was slightly erythematous suggesting a possible source of GI bleed. One of the polyps was biopsied with forceps. The rest of the stomach was normal. The scope was retroflexed and no hiatal hernia was noted. The scope was withdrawn into the esophagus and no esophagitis or Rider's esophagus was noted. The remainder of the esophagus was normal. The scope was withdrawn. The patient was awakened and brought to recovery. Post-procedure Disposition: PACU
[2021-09-06] MEDS: PANTOPRAZOLE DR 40 MG TABLET PO (20:10)
[2021-09-06] MEDS: ATORVASTATIN 20 MG TABLET 10 MG PO (20:10)
[2021-09-06] MEDS: ONDANSETRON 4 MG/2 ML INJ IV (20:11)
[2021-09-07] VITALS: BP 124/63; PULSE 71; RESP 18; TEMP 37.3; O2SAT 94
[2021-09-07 03:00] VITALS: O2SAT 94
[2021-09-07 04:00] VITALS: BP 108/56; PULSE 65; RESP 18; TEMP 37; O2SAT 96
[2021-09-07] MEDS: KCL 20 MEQ IN NS 1,000 ML 125 MEQ IV (05:03)
[2021-09-07 09:31] VITALS: BP 140/75; PULSE 85; RESP 16; TEMP 36.9; O2SAT 95
--- NOTE | 2021-09-07 09:42 | PC.NURSE ---
Assess- Patient is alert and oriented x3, she denies abdominal pain and has had no nausea or emesis. Protonix has been changed to PO and patient may discharge home today.
[2021-09-07] MEDS: PANTOPRAZOLE DR 40 MG TABLET PO (09:56)
[2021-09-07 10:12] LABS: Add Manual Diff / Slide Review NO; Basophils Absolute Auto 0 /uL (0-100); Basophils Percent Auto 0.5 % (0-2); Eosinophils Absolute Auto 100 /uL (0-450); Eosinophils Percent Auto 0.9 % (2-4); Hematocrit 38.5 % (36-46); Hemoglobin 13.2 g/dL (12.0-16.0); Lymphocytes Absolute Auto 1500 /uL (1100-4500); Lymphocytes Percent Auto 19.9 % (25-40); Mean Corpuscular HGB Conc 34.2 % (30-36); Mean Corpuscular Hemoglobin 30.1 PG (26-34); Monocytes Absolute Auto 600 /uL (0-900); Monocytes Percent Auto 7.3 % (3-14); Neutrophils Absolute Auto 5400 /uL (1500-7000); Neutrophils Percent Auto 71.4 % (50-75); Platelet Count 253 X10^3/uL (150-400); Red Blood Cell Count 4.37 X10^6/uL (4.0-5.2); Red Cell Distribution Width 13.3 % (11.6-14.8); White Blood Cell Count 7.6 X10^3/uL (4.5-11.0)
[2021-09-07 10:30] LABS: Alanine Aminotransferase 20 IU/L (<35); Albumin 3.9 g/dL (3.5-5.0); Albumin Globulin Ratio 1.3 (1.0-2.8); Alkaline Phosphatase 39 U/L (38-126); Aspartate Aminotransferase 27 IU/L (14-36); BUN Creatinine Ratio 11.3 (6-22); Bilirubin Total 0.6 mg/dL (0.2-1.3); Blood Urea Nitrogen 9 mg/dL (7-17); Carbon Dioxide 25 mmol/L (22-32); Chloride 110 mmol/L (98-107); Estimated Glomerular Filt Rate > 60.0 mL/min (>60); Glucose 98 mg/dL (80-110); HEMOLYSIS < 15 (0-50); Potassium 3.9 mmol/L (3.4-5.1); Sodium 141 mmol/L (137-145); Total Protein 6.9 g/dL (6.3-8.2)
--- NOTE | 2021-09-07 10:48 | P.DS_ITS ---
History of Present Illness History of Present Illness Date Patient Seen: 09/07/21 Time Patient Seen: 10:48 Date of Onset of Symptoms: 09/05/21 Chief complaint: Vomiting Blood, Upper Abd Pain Narrative: Patient is a 66-year-old female with a history of esophagitis who presents with chief complaint of epigastric pain heartburn and vomiting. Patient has had longstanding heartburn. Pretty severe. She takes PPIs twice a day and has been using sodium bicarbonate in between on a regular basis. Despite all this she has persistent daily symptoms. She was in her usual state of health until yesterday when she got up and had a cup of coffee. She about an hour later started having vomiting and pretty significant epigastric pain. Quite a bit of heartburn. Her vomiting at that point and then continued about every hour and started noticing dark color to it. As the day progressed she began having more and more darkness and what she felt was coffee-grounds. Her pain continued although did not radiate. Was all epigastric and into her chest. She has had no change in bowel movements. No blood in her stool no black or tarry stools. She has had no other significant new change. She has had no fevers or chills. When she started having more and more dark vomit she elected for coming to the emergency room. Patient otherwise feels as if things are going well. And today is feeling quite a bit better since she is not eating anything. Patient has had a history of appendicitis was felt to like that this. But nothing new. Patient has had a long history of esophagitis and reflux. Back in 2018 she had an EGD which did not show anything significant. She had persistent problems and pain and had a repeat endoscopy which showed some erythema of the esophagus but no ulcers or other change. Patient has not had a history of ulcer issues. Otherwise no significant GI history. Patient has been under lot of stress recently. She has a daughter who has developed schizophrenia is been in an out of treatment and alf. Called her frequently and has a hard time getting away. Feels as if the last week has been and seeding least stressful. With no other changes. Social history. Recently . Works at [employer] here . Social drinker nonsmoking Discharge Providers Provider Date of admission: 09/05/21 20:36 Discharge Date: 09/07/21 Primary care physician: Oma Walker MD Consults: 09/06/21 07:10 Consult to Physician Routine Comment: Consulting Provider: Trace Bull Reason for consultation: upper gi bleed Has provider been notified: Yes Discharge provider: Reagan Browne MD Summary Hospital Course Discharge Diagnosis: Upper GI bleed Hypokalemia Anemia Hypothyroidism Depression Hyperlipidemia Hospital Course: Upper GI bleed. Patient was admitted with coffee-ground stools. She had no recurrence of vomiting when she left the emergency room. She had no black or tarry stools. She really had no abdominal pain. She felt like not eating was what made her feel better. Certainly got worse when she ate at home. [place] crit had slightly dropped by 7 points on day 1. This is felt to be secondary primarily to hydration. She was aggressively hydrated at the time of admission. Dr. Bull was consulted and EGD was done. Multiple biopsies were taken and she had multiple gastric polyps 1 of which was irritated but no obvious bleeding source was found. She had no ulcer or other changes. She came back from surgery had a small amount to eat and was feeling better. No nausea. Eight this morning and felt well. No other changes. No abdominal pain nausea or other complaints. Was felt to be secondary to possibly the polyp. Patient has had longstanding issues with daily reflux not responding to just PPI . Trial of Carafate will be done addition to her PPI. She will follow-up with Dr. Walker to see how that goes. Hypokalemia. Was noted on day 2. IV replacement was done with 20 mil equivalents being added to bag and placed in her fluids. She did well. It was normal a as of today. No further treatment. Probably secondary to her persistent vomiting. Anemia. Very mild. She had a slight drop. Actually got up a little bit f urther on the day of discharge had slightly came up. No major issue will be followed as an outpatient but suspect not significantly a problem Hypothyroidism. We discussed her armor thyroid. Will continue for now. She will discuss with Dr. Walker whether she wants to switch to Synthroid. Depression. Overall doing well. Has lots of stresses. Will be followed as outpatient with her doctor. Note no treatment changes at this time. Hyperlipidemia. Continue usual meds Status at Discharge Cognitive/behavioral status at discharge: oriented Functional status at discharge: independent ambulation Overall status at discharge: patient is progressing back to baseline Exam Vital Signs (past 8 hours): - 09/07/21 03:00 09/07/21 04:00 09/07/21 09:31 Temperature 98.6 F 98.4 F Pulse Rate 65 85 Respiratory Rate 18 16 Blood Pressure 108/56 L 140/75 Pulse Oximetry 94 96 95 Oxygen Delivery Method Room Air Oxygen Flow Rate 0 Narrative Exam Narrative: Alert smiling female in no acute distress. Lungs are clear. Heart regular rate and rhythm. Abdomen is soft positive bowel sounds nontender. Extremities without cyanosis clubbing edema. Objective Labs Result Diagrams: 09/07/21 10:05 09/07/21 10:05 Labs: Laboratory Results - last 24 hr 09/07/21 09/07/21 10:05 10:05 WBC 7.6 RBC 4.37 Hgb 13.2 Hct 38.5 MCV 88.0 MCH 30.1 MCHC 34.2 RDW 13.3 Plt Count 253 Neut % (Auto) 71.4 Lymph % (Auto) 19.9 L [place] % (Auto) 7.3 Eos % (Auto) 0.9 L Baso % (Auto) 0.5 Neut # (Auto) 5400 Lymph # (Auto) 1500 [place] # (Auto) 600 Eos # (Auto) 100 Baso # (Auto) 0 Sodium 141 Potassium 3.9 Chloride 110 H Carbon Dioxide 25 BUN 9 Creatinine 0.80 Estimated GFR > 60.0 BUN/Creatinine Ratio 11.3 Glucose 98 Calcium 9.0 Total Bilirubin 0.6 AST 27 ALT 20 Alkaline Phosphatase 39 Total Protein 6.9 Albumin 3.9 Globulin 3.0 Albumin/Globulin Ratio 1.3 PFSH Medical History Cataract Cyst Depression Gastric reflux syndrome Hyperlipidemia Hypothyroidism Surgical History H/O section Status post laser cataract surgery of both eyes Social History household members: spouse and significant other Smoking Status: Never smoker alcohol intake: current Discharge Plan Discharge Plan Patient Disposition: Home Discharge orders & Medications Prescriptions: New sucralfate [Carafate] 1 gram tablet 1 g PO QACHS Qty: 120 1RF Continued pantoprazole 40 mg Tablet,Delayed Release (Dr/Ec) 40 mg PO BID 0RF levocetirizine [Xyzal] 5 mg Tablet 5 mg PO QPM 0RF estradiol [Vagifem] 10 mcg tablet 10 mcg VAGINAL 2XW 0RF thyroid (pork) [[place] Thyroid] 30 mg Tablet 30 mg PO DAILY 0RF lovastatin 10 mg Tablet 20 mg PO QPM 0RF Calcium 500 1 tab PO DAILY 0RF Multi Vitamin 1 tab PO DAILY 0RF cholecalciferol (vitamin D3) tablet 5,000 mg PO DAILY 0RF Rx Instructions: Pt states she hasnt taken this in a while Follow up/Referrals: Oma Walker MD [Primary Care Provider] - 09/15/21 (Call for appointment tomorrow) Discharge Health Status Multidrug resistant organism: No MDRO Diet/Activity/Treatments Diet: Diet as Tolerated Oxygen: as tolerated Skin/Wound/Dressing Care Report to your healthcare provider any signs of infection, such as:: chills, fever and increased pain Visit Report/Discharge Packet Instructions: DI for Gastroesophageal Reflux Disease (GERD), DI for Gastritis Discharge Data Primary Care Provider: Oma Walker Quality VTE Deep Vein Thrombosis/Pulmonary Embolism Present on Admission: Yes
--- NOTE | 2021-09-07 12:56 | CM.DPC ---
DCP Discharge Home Per MD, pt is medically stable to d/c home with no identified barriers to discharge. Per RN, pt independent in room and no concerns at this time and will be given d/c instructions today for d/c home via spouse POV. Plan: Patient to d/c home via spouse POV today and no identified barriers to discharge and no further SW needs at this time. RITIKA Vital
== END 2021-09-07 13:08 | disposition home or self-care (01) | DRG 379 ==
LOC: ED 20:24 → AC 20:37
PROVIDERS: Family Medicine; Surgery; Admitting Provider Family Medicine; Emergency Provider Emergency Medicine; PCP Family Medicine; Referring Provider Emergency Medicine; Visit Provider Family Medicine
PROC: 0DJ08ZZ Inspection of Upper Intestinal Tract, Via Natural or Artificial Opening Endoscopic (ICD-10-PCS; CPT 43235; principal; 2021-09-06 15:30)
DX: K92.0 Hematemesis (principal); E86.0 Dehydration; K31.7 Polyp of stomach and duodenum; E87.6 Hypokalemia; D64.89 Other specified anemias; E03.9 Hypothyroidism, unspecified; E78.5 Hyperlipidemia, unspecified; K21.9 Gastro-esophageal reflux disease without esophagitis; Z20.822 Contact with and (suspected) exposure to COVID-19
CPT/HCPCS: 36415; 43239; 80053; 85025; 85610; 86850; 86900; 86901; 87635; 96361; 96374; 96375; 99232; 99284; 99406; C9803; C9113; J0330; J2270; J2405; J2704; J3010

== ENCOUNTER → 2021-09-22 07:58 | Outpatient (CLI) | payer OTHER, SELFPAY ==
[2019-07-10 17:59] VITALS: BMI 60.5
[2021-09-05 21:30] VITALS: BMI 28.3
--- NOTE | 2021-09-22 | DI.MG.S_ITS ---
BILATERAL DIGITAL SCREENING MAMMOGRAM 3D/2D WITH CAD: 09/22/2021 CLINICAL: Routine screening. Family history of breast cancer. Comparison is made to exams dated: 10/30/2019 mammogram, 09/30/2017 mammogram, and 07/25/2015 mammogram - [facility]. The tissue of both breasts is heterogeneously dense. This may lower the sensitivity of mammography. Current study was also evaluated with a Computer Aided Detection (CAD) system. No significant masses, calcifications, or other findings are seen in either breast. There has been no significant interval change. IMPRESSION: NEGATIVE There is no mammographic evidence of malignancy. A 1 year screening mammogram is recommended. This exam was interpreted at Station ID: [id number]. NOTE: For mammograms, a report in lay terms will be sent to the patient. Approximately 15% of breast malignancies will not be visualized mammographically. In the management of a palpable breast mass, a negative mammogram must not discourage biopsy of a clinically suspicious lesion. Electronically Signed By: Darwin Jackson M.D., jr/grzegorz:09/22/2021 08:58:27 letter sent: Normal Exam ACR BI-RADS Category 1: Negative [id number]
== END ==
PROVIDERS: PCP Family Medicine; Referring Provider Family Medicine; Visit Provider Family Medicine
DX: Z12.31 Encounter for screening mammogram for malignant neoplasm of breast (principal); Z80.3 Family history of malignant neoplasm of breast
CPT/HCPCS: 77063; 77067

== ENCOUNTER → 2023-10-12 14:11 | Outpatient (CLI) | payer OTHER, SELFPAY ==
[2021-09-05 21:30] VITALS: BMI 28.3
--- NOTE | 2023-10-12 | DI.RAD.S_ITS ---
Bone Density Report Name: TANNER GILLETTE Age: 68 Sex: Female Ethnicity: White Date of : 1955 Indication: osteopenia; Referring Provider: KATE LOPEZ Study: Bone densitometry was performed. Exam Date: October 12, 2023 Accession number: [id number] Bone Density: Region BMD T-score Z-score Classification AP Spine(L1, L2, L4) 0.810 -2.0 0.0 Osteopenia Femoral Neck (Left) 0.506 -3.1 -1.4 Osteoporosis Total Hip (Left) 0.601 -2.8 -1.4 Osteoporosis Femoral Neck (Right) 0.607 -2.2 -0.5 Osteopenia Total Hip (Right) 0.696 -2.0 -0.6 Osteopenia Total Hip Mean 0.648 -2.4 -1.0 Osteopenia World Health Organization criteria for BMD impression classify patients as: Normal (T-score at or above -1.0), Osteopenia (T-score between -1.0 and -2.5), or Osteoporosis (T-score at or below -2.5). 10-year Fracture Risk: FRAX not reported because: Some T-score for Spine Total or Hip Total or Femoral Neck at or below -2.5 Previous Exams: -- Region Exam Age BMD T-score BMD Change BMD Change Date g/cm2 vs Baseline vs Previous -- AP Spine (L1-L2,L4) 10/12/2023 68 0.810 -2.0 -0.141 (-14.8%)# -0.073 (-8.3%)# 10/30/2019 64 0.883 -1.4 -0.068 (-7.2%)* -0.028 (-3.1%)* 09/30/2017 62 0.911 -1.1 -0.040 (-4.2%)* 0.018 (2.0%) 07/29/2015 60 0.893 -1.3 -0.058 (-6.1%)* -0.047 (-5.0%)* 06/20/2012 57 0.941 -0.8 -0.011 (-1.1%) -0.011 (-1.1%) 12/28/2005 50 0.951 -0.8 Total Hip(Left) 10/12/2023 68 0.601 -2.8 -0.089 (-12.9%)# -0.061 (-9.2%)# 10/30/2019 64 0.662 -2.3 -0.028 (-4.1%)* -0.002 (-0.2%) 09/30/2017 62 0.663 -2.3 -0.027 (-3.9%) -0.004 (-0.6%) 07/29/2015 60 0.668 -2.2 -0.022 (-3.2%) -0.006 (-0.9%) 06/20/2012 57 0.674 -2.2 -0.016 (-2.3%) -0.016 (-2.3%) 12/28/2005 50 0.690 -2.1 Total Hip(Right) 10/12/2023 68 0.696 -2.0 -0.022 (-3.1%)# -0.023 (-3.2%)# 10/30/2019 64 0.719 -1.8 0.000 (0.1%) 0.021 (3.0%) 09/30/2017 62 0.698 -2.0 -0.021 (-2.9%) -0.004 (-0.5%) 07/29/2015 60 0.701 -2.0 -0.017 (-2.4%) -0.025 (-3.5%) 06/20/2012 57 0.726 -1.8 0.008 (1.1%) 0.008 (1.1%) 12/28/2005 50 0.718 -1.8 -- *Denotes significance at 95% confidence level, LSC for AP Spine = 0.022 g/cm2, LSC for Total Hip = 0.027 g/cm2 Rate of change results reflect vertebral levels common to all scans # Denotes dissimilar scan types or analysis methods Impression: The patient has osteoporosis, based on the Left Femoral Neck T-score. No significant bone loss was observed. Discussion: INCREASED RISK OF FRACTURE. BONE DENSITY IS UNDESIRABLY LOW AT ONE OR MORE SKELETAL SITES, CONSISTENT WITH POSTMENOPAUSAL OSTEOPOROSIS. This patient's lowest T-score meets the World Health Organization's (WHO) criteria for osteoporosis at one or more sites (T-score -2.5 or below). In untreated patients, the risk of osteoporotic fracture increases approximately two-fold for each 1.0 SD decrease in T-score. Low bone density is not the only risk factor for fracture; also consider factors such as patient's age, frailty or poor health, risk of falling, risk of injury, previous osteoporotic fracture, family history of osteoporosis, cigarette smoking, low body weight, etc. Not everyone with low bone mineral density has osteoporosis; osteomalacia and other metabolic bone disorders should also be considered. Patients who have osteoporosis should be evaluated for specific diseases and conditions (secondary causes) that may cause or contribute to bone loss. The [place] [employer]ocrinologists (AACE) and National Osteoporosis Foundation (NOF) recommend pharmacologic intervention for all postmenopausal women whose T-score is in this range. The patient should follow a healthful lifestyle (good nutrition with adequate calcium and vitamin D, and appropriate weight-bearing exercise). Follow-Up: Consider a repeat BMD and Vertebral Fracture Assessment (VFA) exam in 2 years or sooner if medically necessary, to reassess this patient's status. Reported by: CHRISTIANA ARORA MD on 10/12/2023 3:19:00 PM.
--- NOTE | 2023-10-12 | DI.MG.S_ITS ---
BILATERAL DIGITAL SCREENING MAMMOGRAM 3D/2D WITH CAD: 10/12/2023 CLINICAL: Routine screening. Family history of breast cancer. Comparison is made to exams dated: 09/22/2021 mammogram, 10/30/2019 mammogram, and 09/30/2017 mammogram - [facility]. Both breasts are heterogeneously dense, which may obscure small masses (category c / 51-75% glandular tissue). Current study was also evaluated with a Computer Aided Detection (CAD) system. No significant masses, calcifications, or other findings are seen in either breast. There has been no significant interval change. IMPRESSION: NEGATIVE There is no mammographic evidence of malignancy. A 1 year screening mammogram is recommended. Based on the Tyrer Cuzick model (a risk assessment model) the patient's lifetime risk is 14.7% and her 10 year risk is 8.3%. According to the ACR, ACS, and NCCN guidelines, an annual breast MRI exam along with mammogram is recommended if the patient's lifetime risk is 20% or greater. This exam was interpreted at Station ID: [id number]. NOTE: For mammograms, a report in lay terms will be sent to the patient. Approximately 15% of breast malignancies will not be visualized mammographically. In the management of a palpable breast mass, a negative mammogram must not discourage biopsy of a clinically suspicious lesion. Electronically Signed By: Dre [email or web address]:10/12/2023 15:27:39 letter sent: Normal Exam ACR BI-RADS Category 1: Negative [id number]
== END ==
LOC: RAD 14:14
PROVIDERS: PCP Family Medicine; Referring Provider Family Medicine; Visit Provider Family Medicine
DX: Z12.31 Encounter for screening mammogram for malignant neoplasm of breast (principal); Z80.3 Family history of malignant neoplasm of breast; R92.333 Mammographic heterogeneous density, bilateral breasts; M81.0 Age-related osteoporosis without current pathological fracture; Z78.0 Asymptomatic menopausal state
CPT/HCPCS: 77063; 77067; 77080

== ENCOUNTER → 2025-07-09 13:03 | Outpatient (CLI) | payer OTHER, SELFPAY ==
[2021-09-05 21:30] VITALS: BMI 28.3
--- NOTE | 2025-07-09 13:05 | DI.RAD.S_ITS ---
PROCEDURE: XR DEXA AXIAL SKELETON INDICATIONS: SCREENING COMPARISON: [facility], , XR DEXA AXIAL SKELETON, 10/12/2023, 14:29. FINDINGS: Lumbar Spine: Bone mineral density 0.796 g/cm2, T score -2.3. There is interval 9.1% decrease in total lumbar spine bone mineral density. Left Femoral Neck: Bone mineral density 0.508 g/cm2, T score < -3.1. There is interval 0.4% increase in left femoral neck bone mineral density. Left Hip: Bone mineral density 0.6 x 3 g/cm2, T score -2.4. There is interval 8.7% increase in total left hip bone mineral density. Fracture Risk Calculation (when applicable): 10-year fracture risk of a major osteoporotic fracture 28 percent and of a hip fracture 12 percent. (T score greater or equal to -1.0 to: NORMAL) (T score from -1.1 to -2.4: OSTEOPENIA) (T score less than or equal to -2.5: OSTEOPOROSIS) IMPRESSION: Osteoporosis as above. Follow-up guidelines as follows: Osteoporosis: Consider a repeat DEXA and Vertebral Fracture Assessment (VFA) exam in 2 years or sooner if medically necessary, to reassess this patient's status. Osteopenia: Consider a repeat DEXA in 2-3 years to reassess this patient's status, or if there is a new clinical indication. Normal: Consider a repeat DEXA in 5 years or sooner, or if there is a new clinical indication. All treatment decisions require clinical judgment and consideration of individual patient factors, including patient preferences, comorbidities, previous drug use, risk factors not captured in the FRAX model (e.g., frailty, falls, vitamin D deficiency, increased bone turnover, interval significant decline in bone density ) and possible under- or over-estimation of fracture risk by FRAX. In addition, the NOF Guide recommends that FDA-approved medical therapies be considered in postmenopausal women and men age >= 50 years with a: * Hip or vertebral (clinical or morphometric) fracture * T-score of <=-2.5 at the spine or hip * Ten-year fracture probability by FRAX of >= 3% for hip fracture or >=20% for major osteoporotic fracture. Dictated by: Brendan Aviles M.D. on 07/09/2025 at 20:04 Approved by: Brendan Aviles M.D. on 07/09/2025 at 20:05
--- NOTE | 2025-07-09 13:05 | DI.MG.S_ITS ---
MM screening mammo BI: 07/09/2025. BI-RADS: 0 CLINICAL: 70-year old female for bilateral screening mammogram. Tyrer-Cuzick lifetime risk of 11.9%. No personal or first-degree family history of breast cancer. Current reported family history of breast cancer: maternal grandmother, maternal aunt and second maternal aunt's daughter. PRIOR EXAMS 10/12/2023, 09/22/2021, 10/30/2019, 09/30/2017, MAMMOGRAPHY TECHNIQUE: 2D and 3D (tomosynthesis) digital mammographic views obtained, with additional images as needed for full coverage. Current study was also evaluated with a Computer Aided Detection (CAD) system. DENSITY C. The breasts are heterogeneously dense, which may obscure small masses. MAMMOGRAPHY FINDINGS Right: No suspicious mass, asymmetry, microcalcification, or other abnormality seen. Left: Upper Outer Quadrant, Middle depth: Calcifications needing additional imaging evaluation. Calcifications have increased in number and prominence. IMPRESSION: Right * No evidence of malignancy. Left (Calcification): Upper Outer Quadrant, Middle depth * Incomplete - calcification needing additional imaging evaluation. RECOMMENDATIONS Left: Upper Outer Quadrant, Middle depth * Further evaluation with diagnostic mammography. OVERALL ASSESSMENT CATEGORY BI-RADS-0: Incomplete - Need Additional Imaging Evaluation. ELECTRONICALLY SIGNED: Edgardo Cee M.D. on 07/09/2025 at 10:18:05 PM PT Interpreting Station ID: [id number]
== END ==
PROVIDERS: PCP Family Medicine; Referring Provider Family Medicine; Visit Provider Family Medicine
DX: Z12.31 Encounter for screening mammogram for malignant neoplasm of breast (principal); R92.333 Mammographic heterogeneous density, bilateral breasts; Z80.3 Family history of malignant neoplasm of breast; M81.0 Age-related osteoporosis without current pathological fracture; Z78.0 Asymptomatic menopausal state
CPT/HCPCS: 77063; 77067; 77080

== ENCOUNTER → 2025-07-23 09:44 | Outpatient (CLI) | payer OTHER, SELFPAY ==
[2021-09-05 21:30] VITALS: BMI 28.3
--- NOTE | 2025-07-23 09:47 | DI.RAD.S_ITS ---
PROCEDURE: XR CHEST 2V INDICATIONS: Chronic cough TECHNIQUE: 2 views of the chest were acquired. COMPARISON: None. FINDINGS: Mild bilateral perihilar and lower lobe peribronchial thickening, some of which may be related expiratory result; however, bronchitis, viral infection, asthma or other process should be considered. Mild calcifications of the aortic arch. Degenerative changes of the thoracic spine. No pneumothorax, no pleural effusion, no lobar consolidation. Cardiopericardial silhouette and pulmonary vasculature within normal limits. IMPRESSION: Peribronchial thickening as discussed above. Follow-up suggested. If symptoms persist or worsen, CT chest could be performed. Dictated by: Albert Rodriguez M.D. on 07/23/2025 at 11:00 Approved by: Albert Rodriguez M.D. on 07/23/2025 at 11:06
== END ==
PROVIDERS: PCP Family Medicine; Referring Provider Family Medicine; Visit Provider Family Medicine
DX: R05.3 Chronic cough (principal)
CPT/HCPCS: 71046

== ENCOUNTER → 2025-07-27 09:13 | Outpatient (CLI) | payer OTHER, SELFPAY ==
[2021-09-05 21:30] VITALS: BMI 28.3
--- NOTE | 2025-07-27 09:18 | DI.MG.S_ITS ---
MM diagnostic mammo unilat LT: 07/27/2025. BI-RADS: 3 CLINICAL: 70-year old female for left diagnostic mammogram that is a recall from screening on 07/09/2025. Tyrer-Cuzick lifetime risk of 11.9%. No personal or first-degree family history of breast cancer. Current reported family history of breast cancer: maternal grandmother, maternal aunt and second maternal aunt's daughter. PRIOR EXAMS 07/09/2025, 10/12/2023, 09/22/2021, 10/30/2019. MAMMOGRAPHY TECHNIQUE: 2D and 3D (tomosynthesis) digital mammographic views obtained, with additional images as needed for full coverage. Current study was also evaluated with a Computer Aided Detection (CAD) system. DENSITY Left: C. The breast is heterogeneously dense, which may obscure small masses. MAMMOGRAPHY FINDINGS Left: Outer at 3:00, Middle depth, measuring 0.4cm. Previous report: Upper Outer Quadrant: Correlating with findings on screening mammogram there are grouped round calcifications. There is possible central lucency which can be seen in dermal calcifications. Attempts were made to obtain tangential views; however, the calcifications could not definitively be localized to the skin, which may be due to technique. IMPRESSION: Left (Calcification): Outer at 3:00, Middle depth, measuring 0.4cm. Previous report: Upper Outer Quadrant * Probably Benign. RECOMMENDATIONS Left: Outer at 3:00, Middle depth * Six month followup with diagnostic mammography. COMMENTS: Findings and recommendations were conveyed to the patient during today's evaluation. OVERALL ASSESSMENT CATEGORY BI-RADS-3: Probably Benign. ELECTRONICALLY SIGNED: Sara Lewis M.D. on 07/27/2025 at 01:48:51 PM PT Interpreting Station ID: [id number]
== END ==
LOC: MAMMO 09:18
PROVIDERS: PCP Family Medicine; Referring Provider Family Medicine; Visit Provider Family Medicine
DX: R92.8 Other abnormal and inconclusive findings on diagnostic imaging of breast (principal); R92.1 Mammographic calcification found on diagnostic imaging of breast; R92.332 Mammographic heterogeneous density, left breast; Z80.3 Family history of malignant neoplasm of breast
CPT/HCPCS: 77065; G0279

== ENCOUNTER → 2025-07-30 13:43 | Outpatient (CLI) | payer OTHER, SELFPAY ==
[2021-09-05 21:30] VITALS: BMI 28.3
--- NOTE | 2025-07-30 13:44 | DI.CT.S_ITS ---
PROCEDURE: CT CHEST WO CON INDICATIONS: Chronic cough TECHNIQUE: Noncontrast 5 mm thick sections acquired from the pulmonary apices to the posterior costophrenic angles. 1 mm lung window, 5 mm thick coronal and sagittal and 7 mm axial MIP reformats were then acquired. For radiation dose reduction, the following was used: automated exposure control, adjustment of mA and/or kV according to patient size. COMPARISON: [facility], CR, XR CHEST 2V, 07/23/2025, 9:48. FINDINGS: Image quality: Diagnostic. Lower Neck: No enlarged lymph nodes. Thyroid: No thyroid nodules which require sonographic follow up, per consensus guidelines.. Axillae: No enlarged lymph nodes. Chest Wall: Unremarkable. Bones: No aggressive appearing bony lesions. Lungs and Pleura: No pneumothorax or pleural effusions. Bibasilar atelectasis is seen. No consolidation or suspicious nodules. Heart: Heart size is normal. Trace pericardial effusion. 3 vessel coronary artery atherosclerotic calcifications are seen. Thoracic Vessels: The aorta and pulmonary arteries demonstrate normal size. Mediastinum and Ruba: No enlarged lymph nodes. Esophagus: Postsurgical changes are noted in epigastric region. Small hiatal hernia. No significant esophageal wall thickening. Upper Abdomen: Visualized upper abdomen solid organs and bowel loops appear normal. IMPRESSION: 1. Mild bibasilar atelectasis. No focal infiltrate or suspicious pulmonary nodules. 2. Trace pericardial effusion and mild to moderate three-vessel coronary artery atherosclerotic calcifications. Dictated by: Brendan Aviles M.D. on 07/30/2025 at 15:43 Approved by: Brendan Aviles M.D. on 07/30/2025 at 15:46
== END ==
LOC: CT 13:43
PROVIDERS: PCP Family Medicine; Referring Provider Family Medicine; Visit Provider Family Medicine
DX: I25.10 Atherosclerotic heart disease of native coronary artery without angina pectoris (principal); R05.3 Chronic cough; K44.9 Diaphragmatic hernia without obstruction or gangrene; J98.11 Atelectasis
CPT/HCPCS: 71250